=== PATIENT | female | born 1990 | race Caucasian/White ===

== ENCOUNTER → 2018-10-04 15:00 | Outpatient (CLI) | payer OTHER, SELFPAY ==
[2018-10-09 12:58] LABS: HPV Reflexed? NOT INDICATED
== END ==
PROVIDERS: Visit Provider Obstetrics & Gynecology
DX: Z12.4 Encounter for screening for malignant neoplasm of cervix (principal)
CPT/HCPCS: 87624; 88175; G0145

== ENCOUNTER → 2020-01-24 | Outpatient (CLI) | payer OTHER, SELFPAY ==
[2020-01-30 03:51] LABS: HPV Reflexed? NOT INDICATED
== END | disposition home or self-care (01) ==
PROVIDERS: Visit Provider Obstetrics & Gynecology
DX: Z12.4 Encounter for screening for malignant neoplasm of cervix (principal)
CPT/HCPCS: 88175; G0145

== ENCOUNTER → 2020-03-20 16:14 | Outpatient (CLI) | payer OTHER, SELFPAY ==
[2020-03-25 03:06] LABS: Chlamydia By Nucleic Acid AMP Negative (Negative)
[2020-03-25 09:43] LABS: Gonococcus By Nucleic Acid AMP Negative (Negative)
== END ==
PROVIDERS: Visit Provider Obstetrics & Gynecology
DX: Z11.3 Encounter for screening for infections with a predominantly sexual mode of transmission (principal)
CPT/HCPCS: 87491; 87591

== ENCOUNTER → 2020-04-17 16:11 | Outpatient (CLI) | payer OTHER, SELFPAY ==
[2020-04-17 17:26] LABS: hCG Titer Quant., Serum 9474 mIU/mL (1-3)
== END ==
PROVIDERS: Visit Provider Obstetrics & Gynecology
DX: O20.0 Threatened abortion (principal); Z3A.00 Weeks of gestation of pregnancy not specified
CPT/HCPCS: 36415; 84702

== ENCOUNTER → 2020-04-19 09:09 | Outpatient (CLI) | payer OTHER, SELFPAY ==
[2020-04-19 10:45] LABS: hCG Titer Quant., Serum 9264 mIU/mL (1-3)
== END ==
PROVIDERS: Referring Provider Obstetrics & Gynecology; Visit Provider Obstetrics & Gynecology
DX: O20.0 Threatened abortion (principal); Z3A.00 Weeks of gestation of pregnancy not specified
CPT/HCPCS: 36415; 84702

== ENCOUNTER → 2020-04-21 16:23 | Outpatient (CLI) | payer OTHER, SELFPAY ==
[2020-04-21 18:20] LABS: hCG Titer Quant., Serum 7529 mIU/mL (1-3)
== END ==
PROVIDERS: Visit Provider Obstetrics & Gynecology
DX: O20.0 Threatened abortion (principal); Z3A.00 Weeks of gestation of pregnancy not specified
CPT/HCPCS: 36415; 84702

== ENCOUNTER → 2020-04-28 | Outpatient (CLI) | payer OTHER, SELFPAY ==
[2020-04-28 17:44] LABS: hCG Titer Quant., Serum 388 mIU/mL (1-3)
== END | disposition home or self-care (01) ==
LOC: WOBLAB 16:17
PROVIDERS: Visit Provider Student in an Organized Health Care Education/Training Program
DX: O20.0 Threatened abortion (principal)
CPT/HCPCS: 36415; 84702

== ENCOUNTER → 2020-05-01 14:16 | Outpatient (CLI) | payer OTHER, SELFPAY ==
[2020-05-01 17:09] LABS: hCG Titer Quant., Serum 154 mIU/mL (1-3)
[2020-05-01 17:16] LABS: Prolactin 24.1 ng/mL; T4 Free Direct 0.62 ng/dL (0.76-1.46)
== END ==
PROVIDERS: Visit Provider Obstetrics & Gynecology
DX: O03.9 Complete or unspecified spontaneous abortion without complication (principal)
CPT/HCPCS: 36415; 84146; 84439; 84443; 84702

== ENCOUNTER → 2020-05-14 14:01 | Outpatient (CLI) | payer OTHER, SELFPAY ==
[2020-05-14 16:38] LABS: hCG Titer Quant., Serum 8 mIU/mL (1-3)
== END ==
PROVIDERS: Visit Provider Obstetrics & Gynecology
DX: O03.9 Complete or unspecified spontaneous abortion without complication (principal)
CPT/HCPCS: 36415; 84702

== ENCOUNTER → 2020-05-20 14:57 | Outpatient (CLI) | payer OTHER, SELFPAY ==
[2020-05-14 14:53] VITALS: BMI 36.0
--- NOTE | 2020-05-20 15:00 | US_ITS ---
STUDY: THYROID ULTRASOUND REASON FOR EXAM: Female, 30 years old. HYPOTHYROIDISM TECHNIQUE: Ultrasound evaluation of the thyroid was performed with real-time and static dean-scale imaging. COMPARISON: None. FINDINGS: RIGHT LOBE: The right lobe of the thyroid gland is slightly enlarged and measures 5.3 cm x 1.8 cm x 1.7 cm. There is a heterogeneous echotexture. There are no demonstrated solid, cystic or complex lesions. LEFT LOBE: The left lobe of the thyroid gland is slightly enlarged and measures 5 cm x 1.5 cm x 1.4 cm. There is a heterogeneous echotexture. There are no demonstrated solid, cystic or complex lesions. ISTHMUS: The isthmus measures 4 mm. The regional lymph nodes are normal. US/Thyroid IMPRESSION: Mildly enlarged right and left lobes of the thyroid gland with heterogeneous echotexture. Electronically Signed: Robert Frazier, at 15:44 EST , Service support ,
== END ==
PROVIDERS: PCP Internal Medicine; Referring Provider Internal Medicine; Visit Provider Internal Medicine
DX: E03.9 Hypothyroidism, unspecified (principal)
CPT/HCPCS: 76536

== ENCOUNTER → 2020-05-30 07:15 | Outpatient (CLI) | payer OTHER, SELFPAY ==
[2020-05-14 14:53] VITALS: BMI 36.0
[2020-05-30 07:54] LABS: T4 Free Direct 1.15 ng/dL (0.76-1.46)
[2020-06-02 14:08] LABS: Thyroid Peroxidase AB 428 IU/mL (0-34)
[2020-06-02 14:23] LABS: Thyroglobulin Antibody < 1.0 IU/mL (0.0-0.9)
== END ==
PROVIDERS: PCP Internal Medicine; Referring Provider Internal Medicine; Visit Provider Internal Medicine
DX: E03.9 Hypothyroidism, unspecified (principal)
CPT/HCPCS: 36415; 84439; 84443; 84481; 86376; 86800

== ENCOUNTER 2020-06-20 18:23 | Emergency (ER) | payer OTHER, SELFPAY ==
[2020-05-14 14:53] VITALS: BMI 36.0
[2020-06-20 18:23] VITALS: BP 147/95; PULSE 109; RESP 18; TEMP 36.3; O2SAT 100; BMI 33.9
--- NOTE | 2020-06-20 18:35 | RAD_ITS ---
STUDY: X-RAY - LEFT FOOT CLINICAL: Female, 30 years old. fall 2 days ago. generalized anterior and lateral foot pain. TECHNIQUE: 3 view(s) of the foot. COMPARISON: None. FINDINGS: Normal talus, calcaneus, and tarsal bones. Normal visualized subtalar, talonavicular, calcaneocuboid, tarsal and tarsometatarsal articulations. Normal metatarsi. Normal metatarsophalangeal joint of the great toe. Normal tibial and fibular sesamoid bones. Normal interphalangeal joint of the great toe. Normal phalanges of the great toe. Normal second through fifth metatarsophalangeal joints. Normal interphalangeal joints and phalanges of the lesser toes. The soft tissue structures are unremarkable. RAD/Foot min 3 Views IMPRESSION: Normal x-ray examination of the foot. Electronically Signed: Perry Maurer MD at 18:58 EST , Service support ,
--- NOTE | 2020-06-20 19:01 | ED.VIS.GEN ---
History of Present Illness Chief Complaint: Lower Extremity Injury Informant: Patient Narrative: Patient is a 30-year-old previously healthy female who presents to the emergency department for left foot pain. She states that she fell 2 days ago down 2 steps. She felt she twisted her ankle. She denies any ankle pain. The majority the pain is on the dorsal aspect of the foot. No previous injury or surgeries on that extremity. She has been taking Tylenol for her symptoms but not getting much relief. She has been able to ambulate but putting weight on it does cause the pain. She denies any other injury during the fall. Did not hit her head or lose consciousness. Past Medical History - Allergies and Home Meds Allergies/Adverse Reactions: Allergies No Known Allergies Allergy (Verified 06/20/20 18:25) Primary Care Physician: Carlene Lopez MD [Primary Care Provider] - 1 Week if not improving Prior records reviewed: Yes Past Medical History: None Smoking Status: Never smoker Review of Systems All systems negative except as indicated General: Denies: Chills, Fever ENT: Denies: Rhinorrhea, Sore throat Cardiovascular: Denies: Chest pain, Palpitations Respiratory: Denies: Dyspnea, Cough, Dyspnea on exertion Gastrointestinal: Denies: Abdominal pain, Nausea, Vomiting Genitourinary: Denies: Dysuria, Hematuria, Frequency Musculoskeletal: Reports: Extremity Pain. Denies: Neck pain, Back pain, Swelling Skin: Denies: Rash, Wounds Neurological: Denies: Headache, Weakness, Numbness Physical Exam Vital Signs/Narrative: Vital Signs Temp Pulse Resp BP Pulse Ox 06/20/20 18:23 97.4 F L 109 H 18 147/95 H 100 Inital Vital Signs reviewed: Yes General: Well nourished, Well developed, No Acute Distress Head: Normocephalic, Atraumatic Eyes: Perrl, EOMI ENT: Moist mucous membranes, No rhinorrhea Neck: Supple, Nontender Cardiovascular: Regular rate, Regular rhythm, No murmurs Respiratory: No distress, CTA bilaterally, Chest nontender Abdomen: Nondistended Back: Nontender, Normal Inspection Extremities: No edema, Tenderness - Along the dorsal aspect of the foot. No significant pain over base of fifth metatarsal. No pain over the calcaneus. No significant swelling. Has full range of motion. No significant edema. No obvious deformity. 2+ DP pulse. Brisk capillary refill. Sensation intact. Skin: Normal color, No rash Neurological: Alert, Oriented x3, Normal Strength, Normal Sensation Psychological: Normal affect, Normal Mood Diagnostic/Tx/Re-eval - Medical Decision Making Patient presents to the emergency department for left foot pain after a fall 2 days ago. She has been able to ambulate on it. Upon arrival to the emergency department she is in no acute distress. Will check x-ray of the foot to evaluate for fracture. X-ray of the foot did not reveal any acute fracture or dislocation. Will discharge home in stable condition. She is given a walking boot. Advised to use RICE as well as alternating Tylenol and ibuprofen. She understands and is agreeable this plan. She is to follow-up with her PCP. All questions were answered. ED Disposition - Plan for ED Patient: Disposition: Home or Assisted Living Diagnosis: Foot pain, left Instructions: ED Foot Sprain Referrals: Carlene Lopez MD [Primary Care Provider] - 1 Week if not improving
== END 2020-06-20 19:48 | disposition home or self-care (01) ==
LOC: ED 19:33
PROVIDERS: Emergency Provider Emergency Medicine; PCP Internal Medicine
DX: M79.672 Pain in left foot (principal); Z91.81 History of falling
CPT/HCPCS: 73630; 99283

== ENCOUNTER → 2020-06-30 07:48 | Outpatient (CLI) | payer OTHER, SELFPAY ==
[2020-06-20 18:23] VITALS: BMI 33.9
[2020-06-30 08:57] LABS: Free T3 2.5 pg/mL (2.18-3.98); T4 Free Direct 1.24 ng/dL (0.76-1.46); Thyroid Stim Hormone (TSH) 3.08 uIU/mL (0.358-3.74)
== END ==
PROVIDERS: PCP Internal Medicine; Referring Provider Internal Medicine; Visit Provider Internal Medicine
DX: E03.9 Hypothyroidism, unspecified (principal)
CPT/HCPCS: 36415; 84439; 84443; 84481

== ENCOUNTER 2020-09-03 07:35 | Outpatient (RCR) | payer OTHER, SELFPAY ==
[2020-08-28 08:57] LABS: Estradiol 106.3 pg/mL
[2020-09-01 08:36] LABS: Absolute Lymphocyte Count 1.71 X10^3/uL (0.83-4.51); Absolute Neutrophil Count 5.5 X10^3/uL (2.0-7.7); Basophil# 0.07 X10^3/uL; Basophil% 0.9 % (0-1); Eosinophils% 1.3 % (0-5); Hematocrit 44.9 % (37-47); Hemoglobin 15.1 g/dL (12.0-15.0); Lymphocyte # 1.71 X10^3/ul (4.0); Lymphocyte % 21.9 % (19-41); Mean Corp Hgb Conc 33.6 g/dL (32-36); Mean Corpuscular Hgb 30.5 pg (27.0-32.0); Mean Corpuscular Volume 90.7 fL (81-99); Mean Platelet Vol. 10.2 fl (6.2-12.0); Monocyte# 0.45 X10^3/uL; Monocyte% 5.8 % (0-10); NRBC Flagged by Analyzer 0 % (0-5); Neutrophil # 5.46 X10^3/uL (2.7-7.7); Neutrophil % 69.8 % (47-70); Platelet Count 292 K/mm3 (150-450); RBC Distribution Width CV 11.9 % (11.6-14.6); RBC Distribution Width SD 39.5 fl (35.1-43.9); Red Blood Count 4.95 M/mm3 (4.2-5.4); White Blood Count 7.8 K/mm3 (4.4-11.0)
[2020-09-01 09:08] LABS: Progesterone Level 7.23 ng/mL (See Comment); Vitamin B12 752 pg/mL (211-911); Vitamin D,25 Hydroxy 15.8 ng/mL
[2020-09-01 09:12] LABS: Hemoglobin A1c 5.1 % (3.8-5.6)
[2020-09-01 09:17] LABS: Estradiol 134.3 pg/mL; Follicle Stimulating Hormone 1.2 mIU/mL; Luteinizing Hormone 3.2 mIU/mL; Prolactin 28.6 ng/mL
[2020-09-03 08:44] LABS: Progesterone Level 3.06 ng/mL (See Comment)
[2020-09-03 08:47] LABS: Estradiol 57.8 pg/mL
[2020-09-05 22:06] LABS: Androstenedione 288 ng/dL (41-262); Sex Hormone-binding Globulin 21.4 nmol/L (24.6-122.0)
[2020-09-07 14:25] LABS: 17-Hydroxyprogesterone 159 ng/dL (.)
== END 2020-09-03 18:00 | disposition home or self-care (01) ==
LOC: LAB 07:35
PROVIDERS: PCP Internal Medicine
DX: N92.6 Irregular menstruation, unspecified (principal)
CPT/HCPCS: 36415; 82157; 82306; 82533; 82607; 82627; 82670; 83001; 83002; 83036; 83498; 84144; 84146; 84270; 84403; 85025; 82626

== ENCOUNTER → 2020-09-17 13:50 | Outpatient (CLI) | payer OTHER, SELFPAY ==
--- NOTE | 2020-09-17 13:59 | US_ITS ---
STUDY: ULTRASOUND OF THE FEMALE PELVIS - COMPLETE REASON FOR EXAM: Female, 30 years old. SCREENING FOR PCOS - PLEASE MEASURE DOMINANT FOLLICLES AND NOTE NUMBER OF CYSTS LMP: 09/05/2020 TECHNIQUE: Transabdominal and Transvaginal TECHNICAL QUALITY: Adequate. COMPARISON: None. FINDINGS: The uterus is anteverted and is in a midline position. The uterus measures 7.1 x 4.9 x 3.6 cm. Normal uterine cervix. The endometrium measures 2 mm in thickness, and is hyperechoic. There is no demonstrated endometrial mass. There is no demonstrated myometrial mass. I.U.D. - The patient does not have an I.U.D. The right ovary is visualized. The right ovary measures 4.1 x 2.4 x 1.6 cm. There is no right ovarian cyst or ovarian mass. There is no visualized right adnexal mass or complex lesion. There is normal arterial and normal venous vascularity. The left ovary is visualized. The left ovary measures 4.9 x 2.4 x 2.3 cm. There is no left ovarian cyst or ovarian mass. There is no visualized left adnexal mass or complex lesion. There is normal arterial and normal venous vascularity. There is no fluid in the cul-de-sac. The pre void volume of the bladder was ml. The post void volume of the bladder was ml. Polycystic ovary disease: No. US/Transvaginal Non- IMPRESSION: Normal female pelvis. Electronically Signed: Lee Carmen MD at 9:13 EST Tel , Service support ,
--- NOTE | 2020-09-17 13:59 | US_ITS ---
STUDY: ULTRASOUND OF THE FEMALE PELVIS - COMPLETE REASON FOR EXAM: Female, 30 years old. SCREENING FOR PCOS - PLEASE MEASURE DOMINANT FOLLICLES AND NOTE NUMBER OF CYSTS LMP: 09/05/2020 TECHNIQUE: Transabdominal and Transvaginal TECHNICAL QUALITY: Adequate. COMPARISON: None. FINDINGS: The uterus is anteverted and is in a midline position. The uterus measures 7.1 x 4.9 x 3.6 cm. Normal uterine cervix. The endometrium measures 2 mm in thickness, and is hyperechoic. There is no demonstrated endometrial mass. There is no demonstrated myometrial mass. I.U.D. - The patient does not have an I.U.D. The right ovary is visualized. The right ovary measures 4.1 x 2.4 x 1.6 cm. There is no right ovarian cyst or ovarian mass. There is no visualized right adnexal mass or complex lesion. There is normal arterial and normal venous vascularity. The left ovary is visualized. The left ovary measures 4.9 x 2.4 x 2.3 cm. There is no left ovarian cyst or ovarian mass. There is no visualized left adnexal mass or complex lesion. There is normal arterial and normal venous vascularity. There is no fluid in the cul-de-sac. The pre void volume of the bladder was ml. The post void volume of the bladder was ml. Polycystic ovary disease: No. US/Pelvic (Non ) IMPRESSION: Normal female pelvis. Electronically Signed: Lee Carmen MD at 9:13 EST Tel , Service support ,
== END ==
PROVIDERS: PCP Internal Medicine
DX: N92.6 Irregular menstruation, unspecified (principal)
CPT/HCPCS: 76830; 76856

== ENCOUNTER → 2020-09-18 06:51 | Outpatient (CLI) | payer OTHER, SELFPAY ==
[2020-09-18 07:44] LABS: Glucose 75GTT - Fasting 101 mg/dL (70-99)
[2020-09-18 07:55] LABS: Cholesterol 241 mg/dL (200); High Density Lipoprotein 70 mg/dL; Triglycerides 96 mg/dL; Very Low Density Lipoprotein 19 mg/dL (5-40)
[2020-09-18 08:01] LABS: Glucose 75GTT - 30 minutes 134 mg/dL (100-160)
[2020-09-18 08:33] LABS: Insulin 75GTT - Fasting 14.8 mU/L (2.6-37.6)
[2020-09-18 08:34] LABS: Insulin 75GTT - 30 MIN 72.6 mU/L (Not Estab.)
[2020-09-18 09:17] LABS: Glucose 75GTT - 60 minutes 127 mg/dL (100-160)
[2020-09-18 09:24] LABS: Insulin 75GTT - 60 min 86.3 mU/L (Not Estab)
[2020-09-18 10:45] LABS: Glucose 75GTT - 120 minutes 100 mg/dL (70-140)
[2020-09-18 10:53] LABS: Insulin 75GTT - 120 min 66.2 mU/L (Not Estab.)
== END ==
PROVIDERS: PCP Internal Medicine
DX: N92.6 Irregular menstruation, unspecified (principal)
CPT/HCPCS: 36415; 80061; 82951; 82952; 83525

== ENCOUNTER 2020-10-04 08:57 | Outpatient (RCR) | payer OTHER, SELFPAY ==
[2020-10-04 10:14] LABS: Estradiol 134.2 pg/mL; Free T3 2.6 pg/mL (2.18-3.98)
[2020-10-06 08:08] LABS: Progesterone Level 11.67 ng/mL (See Comment)
[2020-10-14 20:30] LABS: T3 Reverse 21.1 ng/dL (9.2-24.1); Thyroid Peroxidase AB 357 IU/mL (0-34)
== END 2020-10-04 18:00 | disposition home or self-care (01) ==
LOC: LAB 08:57
PROVIDERS: PCP Internal Medicine
DX: N92.6 Irregular menstruation, unspecified (principal)
CPT/HCPCS: 36415; 82670; 84144; 84439; 84443; 84481; 84482; 86376

== ENCOUNTER 2020-10-23 09:32 | Outpatient (RCR) | payer OTHER, SELFPAY ==
[2020-10-08 15:03] VITALS: BMI 35.6
== END 2020-12-16 23:59 ==
LOC: IMMUN 09:32
PROVIDERS: PCP Internal Medicine; Referring Provider Family Medicine; Visit Provider Family Medicine
DX: Z23 Encounter for immunization (principal)
CPT/HCPCS: 0001A; 0002A; 91300

== ENCOUNTER 2020-11-05 07:37 | Outpatient (RCR) | payer OTHER, SELFPAY ==
[2020-10-08 15:03] VITALS: BMI 35.6
[2020-11-05 08:50] LABS: Estradiol 88.1 pg/mL
[2020-11-05 08:51] LABS: Progesterone Level 14.08 ng/mL (See Comment)
== END 2020-11-05 18:00 | disposition home or self-care (01) ==
LOC: LAB 07:37
PROVIDERS: PCP Internal Medicine
DX: N92.6 Irregular menstruation, unspecified (principal)
CPT/HCPCS: 36415; 82670; 84144

== ENCOUNTER 2020-12-31 08:06 | Outpatient (RCR) | payer OTHER, SELFPAY ==
[2020-10-08 15:03] VITALS: BMI 35.6
[2020-12-11 09:07] LABS: Progesterone Level 12.57 ng/mL (See Comment)
[2020-12-31 09:10] LABS: Free T3 3.1 pg/mL (2.18-3.98); Glucose 91 mg/dL (74-106); T4 Free Direct 1.02 ng/dL (0.76-1.46); Thyroid Stim Hormone (TSH) 2.67 uIU/mL (0.358-3.74)
[2020-12-31 09:12] LABS: Insulin 11.4 mU/L (2.6-37.6); Vitamin D,25 Hydroxy 36.1 ng/mL
[2021-01-04 08:17] LABS: T3 Reverse 15.9 ng/dL (9.2-24.1); Thyroid Peroxidase AB 225 IU/mL (0-34)
== END 2020-12-31 18:00 | disposition home or self-care (01) ==
LOC: LAB 08:06
PROVIDERS: PCP Internal Medicine
DX: N92.6 Irregular menstruation, unspecified (principal)
CPT/HCPCS: 36415; 82306; 82670; 82947; 83525; 84144; 84439; 84443; 84481; 84482; 86376

== ENCOUNTER 2021-02-28 10:59 | Outpatient (RCR) | payer OTHER, SELFPAY ==
[2020-10-08 15:03] VITALS: BMI 35.6
[2021-02-17 10:06] LABS: Estradiol 84.9 pg/mL
[2021-02-17 15:25] LABS: Progesterone Level 34.67 ng/mL (See Comment)
[2021-02-28 12:48] LABS: Free T3 2.9 pg/mL (2.18-3.98); T4 Free Direct 1.17 ng/dL (0.76-1.46); Thyroid Stim Hormone (TSH) 1.81 uIU/mL (0.358-3.74)
[2021-03-04 09:39] LABS: T3 Reverse 24.1 ng/dL (9.2-24.1)
== END 2021-02-28 18:00 | disposition home or self-care (01) ==
LOC: LAB 10:59
PROVIDERS: PCP Internal Medicine
DX: N92.6 Irregular menstruation, unspecified (principal)
CPT/HCPCS: 36415; 82670; 84144; 84439; 84443; 84481; 84482

== ENCOUNTER 2021-04-16 07:08 | Outpatient (RCR) | payer OTHER, SELFPAY ==
[2021-03-10 19:31] VITALS: BMI 35.6
[2021-04-16 08:38] LABS: Progesterone Level 23.82 ng/mL (See Comment); Vitamin B12 532 pg/mL (211-911); Vitamin D,25 Hydroxy 53.9 ng/mL
[2021-04-16 09:01] LABS: Estradiol 99.3 pg/mL; Glucose 91 mg/dL (74-106); Prolactin 26.6 ng/mL
== END 2021-05-10 02:41 | disposition home or self-care (01) ==
LOC: LAB 07:08
PROVIDERS: PCP Internal Medicine
DX: N92.6 Irregular menstruation, unspecified (principal)
CPT/HCPCS: 36415; 82306; 82607; 82670; 82947; 83525; 84144; 84146

== ENCOUNTER → 2021-05-06 15:25 | Outpatient (CLI) | payer OTHER, SELFPAY ==
[2021-05-06 17:08] LABS: CRP < 2.90 mg/L (0.0-3.0); Rheumatoid Factor < 10.0 IU/mL (<15)
[2021-05-06 17:28] LABS: Erythrocyte Sedimentation Rate 7 mm/hr (0-30)
[2021-05-08 14:43] LABS: ANTINUCLEAR ANTIBODIES DIRECT Negative (Negative)
[2021-05-09 07:41] LABS: CCP IgG Antibodies 4 units (0-19)
== END ==
PROVIDERS: PCP Internal Medicine; Referring Provider Internal Medicine; Visit Provider Internal Medicine
DX: M25.50 Pain in unspecified joint (principal)
CPT/HCPCS: 36415; 85652; 86038; 86140; 86200; 86225; 86235; 86431

== ENCOUNTER 2021-06-08 07:59 | Outpatient (RCR) | payer OTHER, SELFPAY ==
[2021-06-08 09:39] LABS: Free T3 2.9 pg/mL (2.18-3.98); T4 Free Direct 1.06 ng/dL (0.76-1.46)
[2021-06-10 19:46] LABS: Anti-Thyroglobulin AB < 1.0 IU/mL (0.0-0.9); Thyroglobulin, Serum Qt. 9.6 ng/mL (1.5-38.5); Thyroid Peroxidase AB 122 IU/mL (0-34)
== END 2021-06-09 18:00 | disposition home or self-care (01) ==
LOC: LAB 07:59
PROVIDERS: PCP Internal Medicine
DX: E03.9 Hypothyroidism, unspecified (principal)
CPT/HCPCS: 36415; 84432; 84439; 84443; 84481; 86376; 86800

== ENCOUNTER 2021-07-21 07:22 | Outpatient (RCR) | payer OTHER, SELFPAY ==
[2021-07-21 08:44] LABS: Free T3 2.7 pg/mL (2.18-3.98); T4 Free Direct 1.03 ng/dL (0.76-1.46); Thyroid Stim Hormone (TSH) 2.72 uIU/mL (0.358-3.74)
[2021-07-22 15:46] LABS: Thyroglobulin Antibody < 1.0 IU/mL (0.0-0.9); Thyroid Peroxidase AB 110 IU/mL (0-34)
== END 2021-08-10 18:00 | disposition home or self-care (01) ==
LOC: LAB 07:22
PROVIDERS: PCP Internal Medicine
DX: E03.9 Hypothyroidism, unspecified (principal); N92.6 Irregular menstruation, unspecified
CPT/HCPCS: 36415; 84439; 84443; 84481; 86376; 86800

== ENCOUNTER 2021-07-27 12:00 | Outpatient (CLI) | payer OTHER, SELFPAY | END 2021-07-27 23:59 | disposition short-term general hospital (02) | LOC: LABSPEC 12:01 | PROVIDERS: PCP Internal Medicine; Visit Provider Physician Assistant Surgical | DX: Z20.822 Contact with and (suspected) exposure to COVID-19 (principal) | CPT/HCPCS: 87635; U0003; U0005 ==

== ENCOUNTER 2021-09-05 09:04 | Outpatient (RCR) | payer OTHER, SELFPAY ==
[2021-08-11 08:14] LABS: Progesterone Level 16.89 ng/mL (See Comment)
[2021-08-11 08:23] LABS: Estradiol 55.8 pg/mL
[2021-09-05 10:01] LABS: T4 Free Direct 1.06 ng/dL (0.76-1.46); Thyroid Stim Hormone (TSH) 1.48 uIU/mL (0.358-3.74)
[2021-09-08 00:06] LABS: Thyroid Peroxidase AB 97 IU/mL (0-34)
[2021-09-09 13:48] LABS: Thyroglobulin Antibody < 1.0 IU/mL (0.0-0.9)
== END 2021-09-05 18:00 | disposition home or self-care (01) ==
LOC: LAB 09:04
PROVIDERS: PCP Internal Medicine
DX: E03.9 Hypothyroidism, unspecified (principal); N92.6 Irregular menstruation, unspecified
CPT/HCPCS: 36415; 82670; 84144; 84439; 84443; 84481; 86376; 86800

== ENCOUNTER 2021-09-11 07:20 | Outpatient (RCR) | payer OTHER, SELFPAY ==
[2021-09-11 08:40] LABS: Estradiol 96.3 pg/mL
[2021-09-11 09:23] LABS: Progesterone Level 34.67 ng/mL (See Comment)
== END 2021-10-08 18:00 | disposition home or self-care (01) ==
LOC: LAB 07:20
PROVIDERS: PCP Internal Medicine
DX: E03.9 Hypothyroidism, unspecified (principal); N92.6 Irregular menstruation, unspecified
CPT/HCPCS: 36415; 82670; 84144

== ENCOUNTER 2021-12-26 08:42 | Outpatient (RCR) | payer OTHER, SELFPAY ==
[2021-12-26 10:05] LABS: Estradiol 110.7 pg/mL
[2021-12-28 08:26] LABS: Insulin 12.8 mU/L (2.6-37.6); Progesterone Level 25.81 ng/mL (See Comment)
== END 2021-12-26 23:59 | disposition home or self-care (01) ==
LOC: LAB 08:42
PROVIDERS: PCP Internal Medicine
DX: E03.9 Hypothyroidism, unspecified (principal); N92.6 Irregular menstruation, unspecified
CPT/HCPCS: 36415; 82670; 83525; 84144

== ENCOUNTER 2022-01-06 16:56 | Emergency (ER) | payer OTHER, SELFPAY ==
[2022-01-06 16:57] VITALS: BP 140/95; PULSE 82; RESP 15; TEMP 36.2; O2SAT 97; BMI 36.0
--- NOTE | 2022-01-06 17:29 | ED.VIS.FEGU ---
HPI HPI - Female History of Present Illness Chief Complaint: Abd Pain Narrative Narrative: This is a 31-year-old female with a history of PCOS presenting with right flank pain. She stated started on the right flank and radiated to the right inguinal region. She states this was sharp in nature. She vomited 2 times after this. Patient states she does not have dysuria or hematuria but noted she was having a sensation of incomplete bladder emptying earlier. She states this does not feel like previous ovarian cyst. She is currently pain-free. Denies history of kidney stones. No fevers, chills. No diarrhea or constipation. 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 Insulin resistance PCOS (polycystic ovarian syndrome) Home Medications NALTREXONE PO 10/08/20 [History Last Taken Unknown] inositol 2,000 mg-D chiro inositol 50 mg oral powder packet each PO DAILY 10/08/20 [History Last Taken Unknown] lactobacillus combination no.9 4 billion cell capsule (Adult 50 Plus Probiotic) PO 10/08/20 [History Last Taken Unknown] magnesium glycinate 100 mg tablet 1,000 mg PO DAILY 10/08/20 [History Last Taken Unknown] becka-inositol topical DAILY 10/08/20 [History Last Taken Unknown] prenat.vits,ez,vux-crjr-ysyhx 1 tablet PO DAILY 10/08/20 [History Last Taken Unknown] progesterone micronized 100 mg vaginal insert 1 insert vaginal ONCE 10/08/20 [History Last Taken Unknown] cholecalciferol (vitamin D3) 125 mcg (5,000 unit) capsule 250 mcg PO DAILY 05/06/21 [History Last Taken Unknown] levothyroxine (bulk) 1 mg/gram powder (PCCA T4 Sodium Dilution) mg miscellaneous DAILY 05/06/21 [History Last Taken Unknown] gsdmbkre-kkmleq-iqd-ock-aew-udot-horse 100 mg-100 mg-100 mg-125 mg tab (Tumersaid) tab PO 05/06/21 [History Last Taken Unknown] ascorbic acid (vitamin C) 1,000 mg tablet 1 g PO DAILY 06/29/21 [History Last Taken Unknown] choline 500 mg tablet mg PO 06/29/21 [History Last Taken Unknown] sanjuanita (Zingiber officinalis) 250 mg capsule 250 mg PO DAILY 06/29/21 [History Last Taken Unknown] omega-3 fatty acids 1,000 mg capsule 1,000 mg PO DAILY 06/29/21 [History Last Taken Unknown] azithromycin 250 mg tablet See Rx Instructions PO .COMPLEX #6 tabs 07/31/21 [Rx Last Taken Unknown] benzonatate 100 mg capsule 200 mg PO TID PRN cough #30 caps 07/31/21 [Rx Last Taken Unknown] hydrocodone-acetaminophen 5-325mg 5mg-325mg 1 tab PO Q6H PRN pain 3 days #10 tabs 01/06/22 [Rx Last Taken Unknown] ondansetron 4 mg disintegrating tablet 4 mg PO Q8H PRN nausea and vomiting #14 tabs 01/06/22 [Rx Last Taken Unknown] Allergy/AdvReac Type Severity Reaction Status Date / Time No Known Allergies Allergy Verified 07/31/21 12:51 Family History Aunt Breast cancer Grandfather Cancer Diabetes Grandmother Cancer Diabetes Myocardial infarction CVA (cerebral vascular accident) Father Hypertension Mother Hypertension Thyroid disorder Brother Seizures Thyroid disorder Surgical History left knee Social History Smoking Status: Never smoker alcohol intake: never substance use type: does not use ROS ROS ED Constitutional Constitutional ED: Denies chills or fever(s) Eyes Eyes: Denies change in vision ENT ENT ED: Denies rhinorrhea or sore throat Cardiovascular Cardiovascular: Denies chest pain or palpitations Respiratory/Chest Respiratory/Chest: Denies cough or dyspnea Gastrointestinal Gastrointestinal: Reports abdominal pain, nausea and vomiting Genitourinary Genitourinary ED: Denies dysuria or hematuria Integumentary Denies abscess or Abrasions Neurologic Neurologic: Denies headache(s) Psychiatric Psychiatric: Denies anxiety or depression EXAM Physical Exam Const Vital Signs: 01/06/22 16:57 01/06/22 19:13 01/06/22 21:14 Temperature 97.1 F L Temperature Source Temporal Pulse Rate 82 78 Respiratory Rate 15 16 17 Blood Pressure 140/95 H 130/80 H Blood Pressure Mean 110 Pulse Ox 97 98 Oxygen Delivery Method Room Air 01/06/22 21:14 Temperature Temperature Source Pulse Rate Respiratory Rate 16 Blood Pressure Blood Pressure Mean Pulse Ox Oxygen Delivery Method Positive well nourished General Appearance ED: NAD; Negative for pallor HEENT Reports moist mucous membranes Eyes PERRL Resp normal respiratory effort and clear to auscultation bilaterally Cardio regular rate and regular rhythm GI normal to inspection, nondistended, normoactive bowel sounds Back/Spine no CVA tenderness Extremity normal to inspection and full ROM Neuro oriented x3 and CN's II-XII intact bilaterally Sensorium / Orientation: alert Psych mental status grossly normal Skin no rashes or lesions noted General Skin Exam: Negative for jaundice or pallor MDM MDM MDM Narrative Medical decision making narrative: 31-year-old female presenting with right flank pain. It has resolved on arrival. She states does not feel like her previous ovarian cysts. It was sharp and colicky in nature. No history of kidney stones. She was given Toradol and Zofran and she feels improved. Blood work is obtained and her CBC is essentially normal. Renal function electrolytes are normal with exception of a potassium of 3.2. Urinalysis does show some blood however the patient is on her menstrual period. I did obtain a CT of the abdomen pelvis without contrast which shows a nonobstructing right renal calculi and another small pelvic calcification which the radiologist cannot determine is within the bladder or in the uterus. Given the patient's symptoms are treated like a kidney stone especially since she has a nonobstructing stone. She is given [place] and Zofran for home. I will give her urology follow-up. She does not need antibiotics. Patient stable for discharge at this time. Impression: 1. Bladder calculi 2. Hematuria 3. Right flank pain Lab Data Attestation: I reviewed the patient's lab results. Labs: Laboratory Results - last 24 hr 01/06/22 01/06/22 01/06/22 17:15 17:15 19:00 WBC 10.1 RBC 4.63 Hgb 14.1 Hct 41.8 MCV 90.3 MCH 30.5 MCHC 33.7 RDW Std Deviation 39.0 RDW Coeff of Stephie 11.9 Plt Count 328 MPV 10.4 Immature Gran % (Auto) 0.300 Neut % (Auto) 58.6 Lymph % (Auto) 30.9 Bureau % (Auto) 7.8 Eos % (Auto) 1.4 Baso % (Auto) 1.0 Absolute Neuts (auto) 5.9 Absolute Lymphs (auto) 3.13 Nucleated RBC % 0 Sodium 139 Potassium 3.2 L Chloride 105 Carbon Dioxide 27.0 Anion Gap 7 BUN 11 Creatinine 0.89 Estim Creat Clear Calc 86.53 Est GFR (MDRD) Af Amer 95 Est GFR (MDRD) Non-Af 79 BUN/Creatinine Ratio 12.3 Glucose 114 H Calcium 9.1 Urine Color Yellow Urine Clarity Clear Urine pH 6.5 Ur Specific Almo 1.015 Urine Protein 15 H Urine Glucose (UA) Normal Urine Ketones 5 H Urine Occult Blood 250 H Urine Nitrite Negative Urine Bilirubin Negative Urine Urobilinogen Normal Ur Leukocyte Esterase 25 H Urine RBC 10-25 SEEN Urine WBC 0-5 SEEN Ur Squamous Epith Cells 0-5 SEEN Urine Bacteria 1+ Urine Mucus 1+ Radiography Diagnostic Testing: Clinical Impression(s) from Imaging Studies Abdomen/Pelvis CT 01/06/22 17:52 IMPRESSION: 1. Nonobstructing right renal calculi. There is no other evidence of renal or ureteral abnormality. 2. Small pelvic calcification. It is uncertain whether this represents a calcification within the urinary bladder or in the adjacent uterus. 3. Otherwise normal CT of the abdomen and pelvis Electronically Signed: Babar Holbrook DO at 19:25 EDT Reading Location ID and State: [address] [place] [address] Tel [phone], Service support , Discharge Plan Triage Chief Complaint: Abd Pain ED Provider: Oumar Gerber Dx/Rx/DC Orders Instructions: ED Kidney Stone w/ Colic Prescriptions: New hydrocodone-acetaminophen 5-325 mg tablet 1 tab PO Q6H PRN (Reason: pain) 3 Days Qty: 10 0RF ondansetron 4 mg tablet,disintegrating 4 mg PO Q8H PRN (Reason: nausea and vomiting) Qty: 14 0RF No Action magnesium glycinate 100 mg tablet 1,000 mg PO DAILY NALTREXONE PO progesterone micronized 100 mg insert 1 insert VAGINAL ONCE Label Comments: take 3 days after ovulation through the 12 day becka-inositol TOPICAL DAILY inositol-D chiro inositol 2,000-50 mg powder in packet PO DAILY Adult 50 Plus Probiotic 4 billion cell capsule PO prenat.vits,ez,wlw-iveu-pqpga Tablet 1 tablet PO DAILY cholecalciferol (vitamin D3) 125 mcg (5,000 unit) capsule 250 mcg PO DAILY Tumersaid [phone] mg tablet PO levothyroxine (bulk) [PCCA T4 Sodium Dilution] 1 mg/gram powder miscellaneous DAILY Rx Instructions: T4 and T5 compounded thyroid medication. sanjuanita (Zingiber officinalis) 250 mg capsule 250 mg PO DAILY omega-3 fatty acids 1,000 mg capsule 1,000 mg PO DAILY ascorbic acid (vitamin C) 1,000 mg tablet 1 g PO DAILY choline 500 mg tablet PO azithromycin 250 mg tablet See Rx Instructions PO .COMPLEX Qty: 6 0RF Rx Instructions: take 500 mg today (day 1), then 250 mg for 4 days (days 2-5) PO benzonatate 100 mg capsule 200 mg PO TID PRN (Reason: cough) Qty: 30 0RF Primary Care Provider: Carlene Lopez Referrals: Yamilka John MD [STAFF PHYSICIAN] - As soon as possible Carlene Lopez MD [Primary Care Provider] - Disposition Disposition: Home, Self Care Discharge Date/Time: 01/06/22 21:15
[2022-01-06] MEDS: Ketorolac 15 MG/ML Vial IV (17:37)
[2022-01-06] MEDS: Ondansetron 4 MG/2 ML Vial IV (17:37)
[2022-01-06 17:41] LABS: Absolute Lymphocyte Count 3.13 X10^3/uL (0.83-4.51); Absolute Neutrophil Count 5.9 X10^3/uL (2.0-7.7); Eosinophil# 0.14 X10^3/uL; Eosinophils% 1.4 % (0-5); Hematocrit 41.8 % (37-47); Hemoglobin 14.1 g/dL (12.0-15.0); Lymphocyte # 3.13 X10^3/ul (0.83-4.51); Lymphocyte % 30.9 % (19-41); Mean Corp Hgb Conc 33.7 g/dL (32-36); Mean Corpuscular Hgb 30.5 pg (27.0-32.0); Mean Corpuscular Volume 90.3 fL (81-99); Mean Platelet Vol. 10.4 fl (6.2-12.0); Monocyte# 0.79 X10^3/uL; Monocyte% 7.8 % (0-10); NRBC Flagged by Analyzer 0 % (0-5); Neutrophil # 5.94 X10^3/uL (2.7-7.7); Neutrophil % 58.6 % (47-70); Platelet Count 328 K/mm3 (150-450); RBC Distribution Width CV 11.9 % (11.6-14.6); Red Blood Count 4.63 M/mm3 (4.2-5.4); White Blood Count 10.1 K/mm3 (4.4-11.0)
--- NOTE | 2022-01-06 17:52 | CT_ITS ---
STUDY: CT ABDOMEN AND PELVIS WITHOUT CONTRAST REASON FOR EXAM: Female, 31 years old. Kidney stone. RADIATION DOSAGE (If Supplied By Facility): CTDIvol = ( 11.88 ) mGy, DLP = ( 647.02 ) mGycm TECHNIQUE: Transaxial images were obtained from the dome of the diaphragm to the symphysis pubis without oral contrast, and without intravenous contrast. Sagittal and coronal images were reconstructed. Individualized dose optimization techniques were used for this CT. COMPARISON: None. FINDINGS: The visualized lung bases are unremarkable. The visualized portions of the heart are within normal limits. Normal liver. Normal gallbladder and extrahepatic biliary system. Normal spleen. Normal pancreas. Normal bilateral adrenal glands. There is calcification in the right mid kidney. The kidney is otherwise unremarkable. No hydronephrosis. Normal right ureter. Normal left kidney. Normal left ureter. Normal visualized stomach. Normal small intestine. Normal colon. The appendix is visualized and appears normal. Normal abdominal aorta. Normal inferior vena cava. Normal retroperitoneum. Normal urinary bladder. Normal uterus and normal adnexa. There is a small calcification best seen on image 159 of series 2 which appears to lie either in the extreme posterior aspect of the urinary bladder along the anterior aspect of the uterus. Cannot be ascertained with certainty. No pelvic lymphadenopathy. No free air or free fluid is seen within the cavity Normal abdominal wall. Normal osseous structures. CT/Abdomen/Pelvis without Cont IMPRESSION: 1. Nonobstructing right renal calculi. There is no other evidence of renal or ureteral abnormality. 2. Small pelvic calcification. It is uncertain whether this represents a calcification within the urinary bladder or in the adjacent uterus. 3. Otherwise normal CT of the abdomen and pelvis Electronically Signed: Babar Holbrook DO at 19:25 EDT ,
[2022-01-06 18:09] LABS: Anion Gap 7 (5-15); BUN 11 mg/dL (7-18); BUN/Creat Ratio 12.3 RATIO (10-20); Calcium,Total 9.1 mg/dL (8.5-10.1); Chloride 105 mmol/L (98-107); Creatinine, Serum 0.89 mg/dL (0.55-1.02); EST Glomerular Filtration Rate 79 mL/min (>60); Est Glom Filt Rate - Afr Amer 95 mL/min (>60); Estimated Creatinine Clearance 86.53 ml/min; Glucose 114 mg/dL (74-106); Potassium 3.2 mmol/L (3.5-5.1); Sodium Level 139 mmol/L (136-145)
[2022-01-06 19:13] VITALS: RESP 16
[2022-01-06 19:17] LABS: Color, Urine Yellow (Yellow); Glucose, Dipstick Normal (Normal); Ketone-Dipstick 5 mg/dl (Negative); Leukocyte Esterase-Dipstick 25 /ul (Negative); Nitrite-Dipstick Negative (Negative); Occult Blood-Urine 250 /ul (Negative); Protein-Dipstick 15 mg/dl (Negative); Specific Gravity, Urine 1.015 (1.002-1.030); Urine Bilirubin Dipstick Negative (Negative); Urine Clarity Clear (Clear); Urine Urobilinogen Normal (Normal); Urine pH 6.5 (5.0 - 8.0)
[2022-01-06 19:24] LABS: Red Blood Cells-Urine 10-25 SEEN /hpf (0-5); White Blood Cells 0-5 SEEN /hpf (0-5)
[2022-01-06 19:25] LABS: Bacteria 1+ /hpf (None Seen); Squamous Epithelial Cells - UA 0-5 SEEN /hpf (5-10)
[2022-01-06 19:26] LABS: Mucous, Urine 1+ /hpf (<or=2+)
[2022-01-06 21:14] VITALS: BP 130/80; PULSE 78; RESP 16; RESP 17; O2SAT 98
== END 2022-01-06 21:15 | disposition home or self-care (01) ==
PROVIDERS: Emergency Provider Student in an Organized Health Care Education/Training Program; PCP Internal Medicine; Visit Provider Student in an Organized Health Care Education/Training Program
DX: N20.0 Calculus of kidney (principal); R31.9 Hematuria, unspecified; R10.9 Unspecified abdominal pain; E03.9 Hypothyroidism, unspecified; E28.2 Polycystic ovarian syndrome
CPT/HCPCS: 74176; 80048; 81001; 85025; 96374; 96375; 99283; A4216; J2405

== ENCOUNTER → 2022-02-03 | Outpatient (CLI) | payer OTHER, SELFPAY ==
[2022-02-04 16:44] LABS: Giardia Lamblia, Stool EIA Negative (Negative)
== END | disposition home or self-care (01) ==
LOC: LABSPEC 09:20
PROVIDERS: PCP Internal Medicine; Referring Provider Internal Medicine; Visit Provider Internal Medicine
DX: K58.9 Irritable bowel syndrome, unspecified (principal)
CPT/HCPCS: 83630; 87329; 87493; 87506

== ENCOUNTER 2022-03-12 07:32 | Day surgery (SDC) | payer OTHER, SELFPAY ==
--- NOTE | 2022-03-12 | COLBX_PTH ---
PATIENT: NIKI VICENTE LOC: [facility] U#:[id number] AGE/SX: 32/F ROOM: RE03/12/[address]: Dr. Todd Reyes MD : 1990 BED: DIS: 03/12/2022 SPEC #: [id number] RECD: 03/12/22 12:04 STATUS: SURENDRA LUNA #: [id number] CONG: 03/12/22 00:[address]: Todd Reyes DEPT: SURGICAL PATHOLOGY RECD BY: Demetrio Juarez ENTERED: 03/12/22 12:05 SP TYPE: COLON BX OTHR DR: Dr. Carlene Lopez MD Tissues: A - Ileum, NOS B - COLON BIOPSY Procedures: Trichrome (control) Special Stain Group II Surgery Specimen Level IV HEADER OPERATION: Colonoscopy (MAC) with biopsies PRE-OP DIAGNOSIS: Chronic diarrhea TISSUE SUBMITTED: A ? Terminal ileum biopsy, B ? Random colon biopsies MICROSCOPIC DIAGNOSIS A. Terminal ileum, biopsy: A fragment of small intestinal mucosa, no pathologic diagnosis. B. Colon, random biopsy: Fragments of colonic mucosa with changes consistent with lymphocytic (microscopic) colitis. See comment. OUMAR:madison 03/16/2022 COMMENT B. Trichrome stain with matched control was used in the evaluation of the specimen and does not show any significant thickening of subepithelial collagen band. Correlation with clinical, endoscopic findings and appropriate follow up are necessary. MICROSCOPIC DESCRIPTION Slides are reviewed. GROSS DESCRIPTION A - Received in fixative is one container labeled with the patient's name and designated terminal ileum. The specimen consists of one irregular fragment of light lennon soft tissue that measures 0.4 x 0.3 x 0.1 cm. The specimen is totally submitted in one cassette. B - Received in fixative is one container labeled with the patient's name and designated random colon biopsy. The specimen consists of multiple irregular fragments of light lennon soft tissue that in aggregate measure 2 x 0.6 x 0.1 cm. The specimen is totally submitted in one cassette. / OUMAR:madison 03/12/2022 TC:3 CPT: 26621 x2, 05199
[2022-03-12] MEDS: Lactated Ringers 1,000 ML 15 ML IV (07:40)
[2022-03-12 08:02] VITALS: BP 124/84; PULSE 125; RESP 16; TEMP 36.9; O2SAT 99; BMI 35.9
[2022-03-12 08:03] LABS: Internal QC Validated? YES +Cl - CLEAR BKGD; Pregnancy, Urine Negative Negative
--- NOTE | 2022-03-12 08:07 | HP.PCM_ITS ---
History and Physical Date of Admission: 03/12/22 Visit Reasons:?C-Scope/Diarrhea Chief Complaint: diarrhea Desizing Machine Back Tender Required: No Is patient in pain?: No Allergies grape seed Allergy (Mild, Uncoded 03/02/22 14:38) Hives Medications inositol 2,000 mg-D chiro inositol 50 mg oral powder packet each PO DAILY 10/08/20 [History Confirmed 03/02/22] lactobacillus combination no.9 4 billion cell capsule (Adult 50 Plus Probiotic) PO 10/08/20 [History Confirmed 03/02/22] magnesium glycinate 100 mg tablet 1,000 mg PO DAILY 10/08/20 [History Confirmed 03/02/22] becka-inositol topical DAILY 10/08/20 [History Confirmed 03/02/22] prenat.vits,ez,hte-rmmy-tbhgc 1 tablet PO DAILY 10/08/20 [History Confirmed 03/02/22] progesterone micronized 100 mg vaginal insert 1 insert vaginal ONCE 10/08/20 [History Confirmed 03/02/22] cholecalciferol (vitamin D3) 125 mcg (5,000 unit) capsule 250 mcg PO DAILY 05/06/21 [History Confirmed 03/02/22] levothyroxine (bulk) 1 mg/gram powder (PCCA T4 Sodium Dilution) mg miscellaneous DAILY 05/06/21 [History Confirmed 03/02/22] gvdgrlpx-klelmu-vnb-xzg-ion-szgb-horse 100 mg-100 mg-100 mg-125 mg tab (Tumersaid) tab PO 05/06/21 [History Confirmed 03/02/22] NALTREXONE PO 02/01/22 [History Confirmed 03/02/22] Is last menstrual period known: No Post menopausal: No Patient : No PFSH Medical History?(Updated 03/02/22 @ 14:37 by Laurence Griffin) 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 Aunt Breast cancerGrandfather Cancer DiabetesGrandmother Cancer Diabetes Myocardial infarction CVA (cerebral vascular accident)Father HypertensionMother Hypertension Thyroid disorderBrother Seizures Thyroid disorder Social History? Smoking Status:? Never smoker alcohol intake:? never substance use type:? does not use Female Reproductive History Menstrual Ab spontaneous: 1 HPI HPI HPI: NIKI VICENTE, is a 32 F who presents to the office today for surgical consultation regarding chronic diarrhea.? She was referred by Dr. Carlene Lopez written copy of my surgical consult recommendations will return to him.? The patient states that for 3 months she has had diarrhea.? She states she was on a course of doxycycline and within 4 to 5 days of starting it she developed this diarrhea which is not ceased.? She had stool analysis obtained by Dr. Lopez and this was unremarkable.? On 1 occasion she had some mucus but generally this is not the case.? She denies any current abdominal pain.? No fever or chills or sweats.? She drinks city water.? Apparently no one else has been ill.? She has no family history of inflammatory bowel disease or polyps or colon cancer.? It is of note however that she has 2 brothers who have lactose intolerance.? The patient herself has not tried any dietary exclusions yet. ROS General General: Yes fatigue; No weight change, appetite, colon cancer, breast cancer or weakness HEENT HEENT: No difficulty swallowing, eye injury, eye surgery, swollen glands or hoarseness Endo Endocrine: Yes thyroid disease; No diabetes mellitus, thyroid cancer, Hair loss, heat intolerance or cold intolerance Breast Breast: No left breast lump, right breast lump, nipple discharge, breast pain, abnormal mammogram, abnormal US or breast enlargement Musc Musculoskeletal: No back problems, arthritis, rheumatoid arthritis, gout or joint pain Cardio Cardiovascular: No murmur, pacemaker, heart disease, atrial fibrillation, high blood pressure, heart attack, heart stent, palpitations, shortness of breat with exertion or chest pain Psych Psychiatric: Yes anxiety; No depression or hearing voices Resp Respiratory: No shortness of breath, No sleep apnea, No cough, No COPD, No asthma, No emphysema and No wheezing Gastro Gastrointestinal: No abdominal pain, No nausea or vomiting, Yes diarrhea, No constipation, No blood in stool, No acid reflux, No hemorrhoids, No ulcers, No gallbladder problem and No black,tarry stools Pankaj Hematologic: No blood thinners, No blood disorders, No bleeding, No anemia and No blood clots Neuro Neurologic: No weakness Exam Const General: cooperative, healthy appearing, comfortable and no acute distress Nutritional Appearance: obese HENMT Head: normal to inspection Eyes General: appearance normal, both eyes and all related structures Resp Effort & Inspection: normal respiratory effort Auscultation: clear to auscultation bilaterally Cardio Rate: regular rate Rhythm: regular rhythm GI Inspection: normal to inspection Palpation: soft and no hepatosplenomegaly Skin General: no rashes or lesions noted Neuro Cognition: normal cognition Extrem General: no calf tenderness Psych Appearance: grossly normal Assessment and Plan Assessment and Plan (1) Chronic diarrhea: ?Status:?Chronic ?Plan: Chronic diarrhea of undetermined etiology.? I propose for the patient a colonoscopy with possible biopsy or polypectomy as indicated.? Attempt to intubate the terminal ileum will be pursued.? I anticipate monitored anesthesia care.? We will try to expedite the patient's management.? She is aware of the technique, benefit, risk, alternatives.? She has had an opportunity to ask and have questions answered. In the interim she will consider avoiding dairy products to see if this makes an improvement as well. She has had an opportunity ask and have questions answered I very much appreciate the kind opportunity of assisting in the surgical care Copy: Dr. Carlene Reyes M.D., F.A.C.S I have re-examined the patient. There are no clinical changes since date of exam. Todd Reyes M.D., F.A.C.S.
[2022-03-12 09:09] VITALS: BP 118/72; BP 124/84; PULSE 99; RESP 18; TEMP 36.8; O2SAT 100
--- NOTE | 2022-03-12 09:12 | OP.COLON_ITS ---
Patient Name: Terri Lamb Procedure Date: 03/12/2022 8:44 AM Date of : 1990 Age: 32 Procedure: Colonoscopy Indications: Chronic diarrhea Providers: Todd Reyes MD Medicines: See the Anesthesia note for documentation of the administered medications Patient Profile: Last Colonoscopy: none. The patient's first colonoscopy is today. Complications: No immediate complications. Procedure: Pre-Anesthesia Assessment: - Prior to the procedure, a History and Physical was performed, and patient medications and allergies were reviewed. The patient's tolerance of previous anesthesia was also reviewed. The risks and benefits of the procedure and the sedation options and risks were discussed with the patient. All questions were answered, and informed consent was obtained. Prior Anticoagulants: The patient has taken no previous anticoagulant or antiplatelet agents. ASA Grade Assessment: II - A patient with mild systemic disease. After reviewing the risks and benefits, the patient was deemed in satisfactory condition to undergo the procedure. After I obtained informed consent, the scope was passed under direct vision. Throughout the procedure, the patient's blood pressure, pulse, and oxygen saturations were monitored continuously. The pediatric colonoscope was introduced through the anus and advanced to the terminal ileum. The colonoscopy was performed without difficulty. The patient tolerated the procedure well. The quality of the bowel preparation was good. The terminal ileum and the ileocecal valve were photographed. Scope In: 8:51:32 AM Scope Withdrawal Time 0 hours 8 minutes 34 seconds Scope Out: 9:05:01 AM Total Procedure Duration Time 0 hours 13 minutes 29 seconds Findings: The perianal and digital rectal examinations were normal. The colon (entire examined portion) appeared normal. The terminal ileum appeared normal. Biopsies were taken with a cold forceps for histology. Biopsies for histology were taken with a cold forceps from the entire colon for evaluation of microscopic colitis. Impression: - The entire examined colon is normal. - The examined portion of the ileum was normal. Biopsied. - Biopsies were taken with a cold forceps from the entire colon for evaluation of microscopic colitis. Recommendation: - Discharge patient to home. - Resume previous diet. - Continue present medications. - Repeat colonoscopy at age 51. - Telephone my office for pathology results in 1 week. Procedure Code(s): --- Professional --- 26249, Colonoscopy, flexible; with biopsy, single or multiple Diagnosis Code(s): --- Professional --- K52.9, Noninfective gastroenteritis and colitis, unspecified CPT copyright 2017 [employer]. All rights reserved. The codes documented in this report are preliminary and upon anesthesiologist assistant certified review may be revised to meet current compliance requirements. Todd Reyes MD 03/12/2022 9:11:42 AM This report has been signed electronically. Number of Addenda: 0 Note Initiated On: 03/12/2022 8:44 AM
--- NOTE | 2022-03-12 09:12 | OP.CCLET_ITS ---
03/12/2022 Carlene Lopez [facility] [address] [place] [address] Re : Colonoscopy procedure for Terri Lamb Dear Dr. Lopez This procedure was performed on Saturday, March 12, 2022. My impressions and recommendations are as follows: Impressions : - The entire examined colon is normal. - The examined portion of the ileum was normal. Biopsied. - Biopsies were taken with a cold forceps from the entire colon for evaluation of microscopic colitis. Recommendations : - Discharge patient to home. - Resume previous diet. - Continue present medications. - Repeat colonoscopy at age 51. - Telephone my office for pathology results in 1 week. My findings are described in the full procedure note, which is enclosed. If I can be of further assistance, please feel free to contact me at Doctor phone number(s): Work: . Sincerely, Todd Reyes MD 03/12/2022 9:11:42 AM This report has been signed electronically.
[2022-03-12 09:15] VITALS: BP 108/78; BP 124/84; PULSE 96; RESP 18; O2SAT 99
[2022-03-12 09:20] VITALS: BP 118/85; BP 124/84; PULSE 88; RESP 18; O2SAT 94
[2022-03-12 09:24] VITALS: BP 124/84; BP 127/80; PULSE 86; RESP 18; TEMP 37.2; O2SAT 96
[2022-03-12 09:39] VITALS: BP 124/84
== END 2022-03-12 09:55 | disposition home or self-care (01) ==
LOC: EN 07:33 → AC 07:34
PROVIDERS: Anesthesiology; PCP Internal Medicine; Referring Provider Internal Medicine; Visit Provider Surgery
PROC: 0DJD8ZZ Inspection of Lower Intestinal Tract, Via Natural or Artificial Opening Endoscopic (ICD-10-PCS; CPT 45378; principal; 2022-03-12 08:25)
DX: K52.9 Noninfective gastroenteritis and colitis, unspecified (principal)
CPT/HCPCS: 45380; 81025; 88305; 88313; J7120; J2405

== ENCOUNTER 2022-03-25 08:48 | Day surgery (SDC) | payer OTHER, SELFPAY ==
[2022-03-25 09:11] LABS: Internal QC Validated? YES +Cl - CLEAR BKGD; Pregnancy, Urine Negative Negative
[2022-03-25 09:15] VITALS: BP 131/84; PULSE 98; RESP 16; TEMP 36.7; O2SAT 100; BMI 36.6
[2022-03-25] MEDS: Lactated Ringers 1,000 ML 15 ML IV (09:26)
--- NOTE | 2022-03-25 10:54 | DCINST_ITS ---
Discharge Instructions Diet Discharge Diet: No restrictions Activity Discharge Activity: Return to Normal Activity Follow Up Care Please Follow Up With: Yamilka John MD When: 2 to 3 weeks with a KUB, call for appointment Test Results: Test results from this visit will be discussed in further detail at your follow- up appointment, if applicable. Discharge Plan Admission Attending Provider: Yamilka John Primary Care Provider: Carlene Lopez Discharge Orders/Prescriptions Prescriptions: New ondansetron HCl [ondansetron HCl] 8 mg tablet 8 mg PO Q8H PRN PRN (Reason: Nausea) 7 Days Qty: 20 0RF oxycodone-acetaminophen [oxycodone-acetaminophen] 5-325 mg tablet 2 tab PO Q8H PRN PRN (Reason: Pain) 7 Days Qty: 20 0RF cephalexin [cephalexin] 500 mg capsule 500 mg PO Q12 3 Days Qty: 6 0RF Continued magnesium glycinate 100 mg tablet 1,000 mg PO DAILY progesterone micronized 100 mg insert 1 insert VAGINAL ONCE Label Comments: take 3 days after ovulation through the 14TH day becka-inositol 1 dose TOPICAL DAILY inositol-D chiro inositol 2,000-50 mg powder in packet 1 each PO DAILY prenat.vits,ez,ogj-prkf-yagpc Tablet 1 tablet PO DAILY cholecalciferol (vitamin D3) 125 mcg (5,000 unit) capsule 250 mcg PO DAILY NALTREXONE 4.5 mg PO DAILY Rx Instructions: 4.5mg daily Tumersaid [phone] mg tablet 1 tab PO DAILY levothyroxine 137 mcg tablet 137 mcg PO DAILY Label Comments: TAKE 1 TABLET BY MOUTH EVERY DAY 1 HOUR PRIOR TO BREAKFAST. triamcinolone acetonide 0.5 % Cream 1 applic TOPICAL BID ketoconazole 2 % cream 1 applic TOPICAL BID Label Comments: APPLY BETWEEN THE BREASTS TWICE DAILY progesterone micronized 100 mg Capsule 200 mg PO QHS coenzyme Q10 [CoQ-10] 100 mg Capsule 100 mg PO DAILY budesonide 9 mg capsule, extended release 9 mg PO DAILY Qty: 60 0RF Referrals / Follow Up: Carlene Lpoez MD [Primary Care Provider] - Disposition Disposition (needs filled in before D/C Order can be placed): Home, Self Care
--- NOTE | 2022-03-25 10:57 | OP.PCM_ITS ---
Report of Operation Date of Procedure: 03/25/22 Pre-Operative Diagnosis: Right kidney stone Post-Operative Diagnosis: Same Surgery/Procedure Performed:: Cystoscopy, right retrograde pyelogram, right ureteroscopy, right ureteral stent insertion Surgeon: Yamilka John Type of Anesthesia: General Specimen's removed: None Description of Procedure: The patient is a 32-year-old female with a right renal stone identified on imaging. She now presents for surgical intervention under anesthesia. Informed consent was obtained. The patient was taken to the operating room and placed on the operating room table. Anesthesia monitored the head, neck, airway, IV access case. Once anesthesia was administered, the patient was visualized with the lithotripter and the stone was not able to be seen. The patient was then placed into dorsal lithotomy position and was prepped and draped in usual sterile fashion. A cystoscope was inserted through the urethra under direct vis ualization into the urinary bladder. There were no masses or areas of erythema, foreign body or other abnormality identified. The right ureteral orifice was then intubated with an 8 Armenian cone-tip catheter. Contrast was injected in retrograde fashion filling the calyces. The stone was not clearly identified still yet. The decision was made to perform ureteroscopy to directly visualize the stone. A 0.035 Glidewire was passed into the upper pole. A flexible ureteroscope was inserted over the Glidewire to the lower aspect of the ureter where a narrowing was identified. The ureteroscope would not progress further and the decision was made to place a ureteral stent and abort the shockwave lithotripsy. A 6 Armenian 26 cm JJ stent was placed over the wire with good positioning in the renal pelvis as well as the urinary bladder. The patient's bladder was then emptied and the case was terminated. She was awakened and taken to the recovery room in good condition. There were no complications during this procedure. Grafts/Implants Used: 6 x 26 JJ stent Complications None Admit VTE Documentation VTE Present on Admission: Yes VTE Mechan Device Prophylaxis: SCD's VTE Pharm Prophylaxis ordered?: No
[2022-03-25] MEDS: Cefazolin 2 GM in 0.9% Normal Saline 100 ML IV (11:09)
[2022-03-25 12:01] VITALS: BP 131/84; BP 137/93; PULSE 108; RESP 16; TEMP 36.9; O2SAT 100
[2022-03-25 12:15] VITALS: BP 131/84; BP 137/91; PULSE 96; RESP 16; O2SAT 100
[2022-03-25 12:25] VITALS: BP 131/84; BP 141/90; PULSE 85; RESP 18; TEMP 36.2; O2SAT 100
[2022-03-25] MEDS: Acetaminophen 325 MG Tablet 650 MG PO (12:43)
[2022-03-25] MEDS: oxyCODONE 5 MG Tablet 10 MG PO (12:43)
[2022-03-25 13:11] VITALS: BP 131/84
== END 2022-03-25 13:44 | disposition home or self-care (01) ==
LOC: SDC 08:49 → AC 08:49
PROVIDERS: PCP Internal Medicine; Referring Provider Urology; Visit Provider Urology
PROC: (CPT 50590; principal; 2022-03-25 10:00)
DX: N20.0 Calculus of kidney (principal); Z87.442 Personal history of urinary calculi; N39.3 Stress incontinence (female) (male); R39.14 Feeling of incomplete bladder emptying
CPT/HCPCS: 52332; 00910; 81025; J7120; C2617; J2405

== ENCOUNTER 2022-04-15 05:54 | Day surgery (SDC) | payer OTHER, SELFPAY ==
[2022-04-15] VITALS (8 sets, daily range): BP systolic 130–140; BP diastolic 82–98; PULSE 92–120; RESP 16–18; TEMP 36.5–37.1; O2SAT 18–97; BMI 35.9
[2022-04-15 06:30] LABS: Internal QC Validated? YES +Cl - CLEAR BKGD; Pregnancy, Urine Negative Negative
[2022-04-15] MEDS: Lactated Ringers 1,000 ML 15 ML IV (06:32)
[2022-04-15] MEDS: Cefazolin 2 GM in 0.9% Normal Saline 100 ML IV (07:30)
--- NOTE | 2022-04-15 07:35 | DCINST_ITS ---
Discharge Instructions Diet Discharge Diet: No restrictions Activity Discharge Activity: Return to Normal Activity Dressing / Incision Call your doctor if you observe: Fever of 101 or Higher, Inability to urinate and Inability to have a bowel movement Follow Up Care Please Follow Up With: Yamilka John MD When: Call office for appointment Test Results: Test results from this visit will be discussed in further detail at your follow- up appointment, if applicable. Discharge Plan Admission Attending Provider: Yamilka John Primary Care Provider: Carlene Lopez Discharge Orders/Prescriptions Prescriptions: New oxycodone-acetaminophen [oxycodone-acetaminophen] 5-325 mg tablet 2 tab PO Q8H PRN PRN (Reason: Pain) 7 Days Qty: 20 0RF cephalexin [cephalexin] 500 mg capsule 500 mg PO Q12 3 Days Qty: 6 0RF Continued magnesium glycinate 100 mg tablet 1,000 mg PO DAILY progesterone micronized 100 mg insert 1 insert VAGINAL ONCE Label Comments: take 3 days after ovulation through the 14TH day becka-inositol 1 dose TOPICAL DAILY inositol-D chiro inositol 2,000-50 mg powder in packet 1 each PO DAILY prenat.vits,ez,wud-rlkn-gkaci Tablet 1 tablet PO DAILY cholecalciferol (vitamin D3) 125 mcg (5,000 unit) capsule 250 mcg PO DAILY NALTREXONE 4.5 mg PO DAILY Rx Instructions: 4.5mg daily Tumersaid [phone] mg tablet 1 tab PO DAILY levothyroxine 137 mcg tablet 137 mcg PO DAILY Label Comments: TAKE 1 TABLET BY MOUTH EVERY DAY 1 HOUR PRIOR TO BREAKFAST. ondansetron HCl 8 mg tablet 8 mg PO Q8H PRN PRN (Reason: Nausea) 7 Days Qty: 20 0RF oxycodone-acetaminophen 5-325 mg tablet 2 tab PO Q8H PRN PRN (Reason: Pain) 7 Days Qty: 20 0RF triamcinolone acetonide 0.5 % Cream 1 applic TOPICAL BID ketoconazole 2 % cream 1 applic TOPICAL BID Label Comments: APPLY BETWEEN THE BREASTS TWICE DAILY progesterone micronized 100 mg Capsule 200 mg PO QHS coenzyme Q10 [CoQ-10] 100 mg Capsule 100 mg PO DAILY metformin 500 mg tablet 500 mg PO DAILY Label Comments: TAKE 1 TABLET BY MOUTH TWO TIMES A DAY FOR MEALS oxybutynin chloride 10 mg tablet extended release 24hr 10 mg PO PRN PRN (Reason: PAINFUL URINATION) Label Comments: TAKE 1 TABLET BY MOUTH EVERY DAY IN THE MORNING phenazopyridine 200 mg tablet 200 mg PO Q8 PRN (Reason: PAINFUL URINATION) Label Comments: TAKE 1 TABLET EVERY 8 HOURS NEEDED budesonide 9 mg capsule, extended release 9 mg PO DAILY Qty: 60 0RF Referrals / Follow Up: Carlene Lopez MD [Primary Care Provider] - Disposition Disposition (needs filled in before D/C Order can be placed): Home, Self Care
[2022-04-15] MEDS: Ketorolac 30 MG/ML Syringe IV (09:41)
--- NOTE | 2022-04-15 12:08 | PCM.OPRPT ---
Report of Operation Date of Procedure: 04/15/22 Pre-Operative Diagnosis: Right renal calculus Post-Operative Diagnosis: Same Surgery/Procedure Performed:: Cystoscopy, right ureteroscopy, retrograde pyelogram, right ureteral stent change Surgeon: Yamilka John Type of Anesthesia: General Specimen's removed: None Description of Procedure: The patient is a 32-year-old female with a right renal calculus who presents for ureteroscopy possible laser lithotripsy of her stone. Informed consent has been obtained. The patient was taken to the operating room and placed on the operating room table. Anesthesia monitored the head, neck, airway, IV access and vital signs throughout the case. Once anesthesia was appropriately administered, the patient was placed into dorsolithotomy position was prepped and draped in usual sterile fashion. The cystoscope was inserted through the urethra under direct visualization into the urinary bladder. The mucosa surrounding the stent was extremely edematous and erythematous and irritated. A 0.035 Glidewire was passed alongside the stent which was then grasped and pulled to the urethral meatus. I was unable to thread a second Glidewire through the stent so I remove the stent and used the cystoscope to place a second wire alongside the first. The flexible ureteroscope was then advanced over one of the Glidewire all the way to the renal pelvis. There was no stone identified in any of the calyces or the renal pelvis. Contrast was then injected to ensure all calyces were directly visualized. There was some debris present from the stent which was grasped and removed. The feeling is that the stone is intraparenchymal. At this time the entire length of the ureter was evaluated and found to be without evidence of obstruction or stone. The safety wire was then used to place a 6 Greenlandic 26 cm stent with good positioning in the renal pelvis as well as the urinary bladder. The string was left attached to the stent and was secured to her right inner thigh using Steri-Strips. The patient was then awakened and taken to the recovery room in good condition. There were no complications during this procedure. Grafts/Implants Used: 6 x 26 JJ stent Complications None Admit VTE Documentation VTE Present on Admission: Yes VTE Mechan Device Prophylaxis: SCD's VTE Pharm Prophylaxis ordered?: No
== END 2022-04-15 10:28 | disposition home or self-care (01) ==
LOC: SDC 05:56 → AC 05:56
PROVIDERS: Anesthesiology; PCP Internal Medicine; Referring Provider Urology; Visit Provider Urology
PROC: 0TJ98ZZ Inspection of Ureter, Via Natural or Artificial Opening Endoscopic (ICD-10-PCS; CPT 52352; principal; 2022-04-15 07:20)
DX: N20.0 Calculus of kidney (principal); N39.3 Stress incontinence (female) (male); R39.14 Feeling of incomplete bladder emptying; E28.2 Polycystic ovarian syndrome; E88.81 Metabolic syndrome and other insulin resistance
CPT/HCPCS: 52332; 52310; 76000; 81025; J7120; C2617; J2405

== ENCOUNTER 2022-04-24 09:04 | Outpatient (RCR) | payer OTHER, SELFPAY ==
[2022-04-24 10:31] LABS: Free T3 2.8 pg/mL (2.18-3.98); T4 Free Direct 1.55 ng/dL (0.76-1.46); Thyroid Stim Hormone (TSH) 0.42 uIU/mL (0.358-3.74)
[2022-04-27 16:14] LABS: Anti-Thyroglobulin AB < 1.0 IU/mL (0.0-0.9); Thyroglobulin, Serum Qt. 3.9 ng/mL (1.5-38.5); Thyroid Peroxidase AB 46 IU/mL (0-34)
== END 2022-05-10 18:00 | disposition home or self-care (01) ==
LOC: LAB 09:04
PROVIDERS: PCP Internal Medicine
DX: E03.9 Hypothyroidism, unspecified (principal)
CPT/HCPCS: 36415; 84432; 84439; 84443; 84481; 86376; 86800

== ENCOUNTER → 2022-05-31 | Outpatient (CLI) | payer OTHER, SELFPAY ==
[2022-05-31 18:09] LABS: Calcium,Total 9.4 mg/dL (8.5-10.1)
== END | disposition home or self-care (01) ==
LOC: MTLAB 15:52
PROVIDERS: PCP Internal Medicine; Referring Provider Urology; Visit Provider Urology
DX: N20.0 Calculus of kidney (principal)
CPT/HCPCS: 36415; 82310

== ENCOUNTER 2022-06-04 09:08 | Outpatient (RCR) | payer OTHER, SELFPAY ==
[2022-06-04 10:26] LABS: Free T3 2.5 pg/mL (2.18-3.98); T4 Free Direct 1.36 ng/dL (0.76-1.46)
[2022-06-06 14:44] LABS: Thyroid Peroxidase AB 34 IU/mL (0-34)
== END 2022-06-09 08:00 | disposition home or self-care (01) ==
LOC: LAB 09:08
PROVIDERS: PCP Internal Medicine
DX: N92.6 Irregular menstruation, unspecified
CPT/HCPCS: 36415; 84439; 84443; 84481; 86376

== ENCOUNTER 2022-06-28 07:54 | Outpatient (RCR) | payer OTHER, SELFPAY ==
[2022-06-28 08:45] LABS: Progesterone Level 28.72 ng/mL (See Comment)
[2022-06-28 08:51] LABS: Estradiol 77.4 pg/mL
== END 2022-06-28 18:00 | disposition home or self-care (01) ==
LOC: LAB 07:54
PROVIDERS: PCP Internal Medicine
DX: N92.6 Irregular menstruation, unspecified
CPT/HCPCS: 36415; 82670; 84144

== ENCOUNTER → 2022-07-01 | Outpatient (CLI) | payer OTHER, SELFPAY ==
[2022-07-01 09:00] LABS: Absolute Lymphocyte Count 2.59 X10^3/uL (0.83-4.51); Absolute Neutrophil Count 5.7 X10^3/uL (2.0-7.7); Basophil# 0.13 X10^3/uL; Basophil% 1.3 % (0-1); Eosinophil# 0.66 X10^3/uL; Eosinophils% 6.8 % (0-5); Hematocrit 43.3 % (37-47); Hemoglobin 14.7 g/dL (12.0-15.0); Lymphocyte # 2.59 X10^3/ul (0.83-4.51); Lymphocyte % 26.7 % (19-41); Mean Corp Hgb Conc 33.9 g/dL (32-36); Mean Corpuscular Hgb 30.9 pg (27.0-32.0); Mean Corpuscular Volume 91.2 fL (81-99); Mean Platelet Vol. 9.8 fl (6.2-12.0); Monocyte% 6.2 % (0-10); NRBC Flagged by Analyzer 0 % (0-5); Neutrophil # 5.67 X10^3/uL (2.7-7.7); Neutrophil % 58.6 % (47-70); Platelet Count 353 K/mm3 (150-450); RBC Distribution Width CV 11.9 % (11.6-14.6); RBC Distribution Width SD 39.8 fl (35.1-43.9); Red Blood Count 4.75 M/mm3 (4.2-5.4); White Blood Count 9.7 K/mm3 (4.4-11.0)
[2022-07-01 09:21] LABS: Vitamin D,25 Hydroxy 54.8 ng/mL
[2022-07-01 09:37] LABS: ALB/GLOB Ratio 1.1 RATIO (0.9-2.4); AST(SGOT) 12 U/L (15-37); Alanine Aminotransfer ALT/SGPT 34 U/L (13-56); Albumin, Serum 3.8 g/dL (3.2-5.0); Alkaline Phosphatase 76 U/L (45-117); Anion Gap 4 (5-15); BUN 12 mg/dL (7-18); BUN/Creat Ratio 14.8 RATIO (10-20); Calcium,Total 9.2 mg/dL (8.5-10.1); Chloride 106 mmol/L (98-107); Cholesterol 249 mg/dL (200); Creatinine, Serum 0.81 mg/dL (0.55-1.02); EST Glomerular Filtration Rate 87 mL/min (>60); Est Glom Filt Rate - Afr Amer 106 mL/min (>60); Free T3 2.8 pg/mL (2.18-3.98); Globulin 3.5 g/dL (2.2-4.2); Glucose 95 mg/dL (74-106); High Density Lipoprotein 51 mg/dL; Potassium 3.8 mmol/L (3.5-5.1); Protein, Total 7.3 g/dL (6.4-8.2); Sodium Level 138 mmol/L (136-145); T4 Free Direct 1.32 ng/dL (0.76-1.46); Thyroid Stim Hormone (TSH) 0.54 uIU/mL (0.358-3.74); Triglycerides 103 mg/dL; Very Low Density Lipoprotein 21 mg/dL (5-40)
== END | disposition home or self-care (01) ==
LOC: LAB 08:13
PROVIDERS: PCP Internal Medicine; Visit Provider Internal Medicine
DX: E88.81 Metabolic syndrome and other insulin resistance (principal); E66.9 Obesity, unspecified; E28.2 Polycystic ovarian syndrome; E55.9 Vitamin D deficiency, unspecified; Z13.220 Encounter for screening for lipoid disorders
CPT/HCPCS: 36415; 80053; 80061; 82306; 84439; 84443; 84481; 85025

== ENCOUNTER 2022-07-28 07:21 | Outpatient (RCR) | payer OTHER, SELFPAY ==
[2022-07-28 08:09] LABS: Estradiol 76.7 pg/mL
[2022-07-28 08:16] LABS: Progesterone Level 32.43 ng/mL (See Comment)
== END 2022-07-28 08:30 | disposition home or self-care (01) ==
LOC: LAB 07:21
PROVIDERS: PCP Internal Medicine
DX: E03.9 Hypothyroidism, unspecified (principal); N92.6 Irregular menstruation, unspecified
CPT/HCPCS: 36415; 82670; 84144

== ENCOUNTER → 2022-08-02 | Outpatient (CLI) | payer OTHER, SELFPAY ==
[2022-08-06 18:41] LABS: HPV APTIMA, High Risk Negative (Negative)
== END | disposition home or self-care (01) ==
LOC: LABSPEC 16:06
PROVIDERS: PCP Internal Medicine; Referring Provider Nurse Practitioner Women's Health; Visit Provider Nurse Practitioner Women's Health
DX: Z01.419 Encounter for gynecological examination (general) (routine) without abnormal findings (principal)
CPT/HCPCS: 87624; 88175; G0145

== ENCOUNTER 2022-08-31 07:21 | Outpatient (RCR) | payer OTHER, SELFPAY ==
[2022-08-31 08:20] LABS: Estradiol 64.8 pg/mL; Prolactin 16.6 ng/mL
[2022-08-31 08:50] LABS: Progesterone Level 25.62 ng/mL (See Comment); Vitamin B12 872 pg/mL (211-911)
== END 2022-08-31 18:00 | disposition home or self-care (01) ==
LOC: LAB 07:21
PROVIDERS: PCP Internal Medicine
DX: N92.6 Irregular menstruation, unspecified
CPT/HCPCS: 36415; 82306; 82607; 82627; 82670; 84144; 84146; 82626

== ENCOUNTER → 2022-09-27 | Outpatient (CLI) | payer OTHER, SELFPAY ==
--- NOTE | 2022-09-27 09:44 | RAD_ITS ---
STUDY: X-RAY CHEST REASON FOR EXAM: Female, 32 years old. Cough with rib pain. TECHNIQUE: Frontal and lateral views of the chest. COMPARISON: None. FINDINGS: The lungs are clear and expanded. There is no demonstrated pleural abnormality. Normal size heart. Normal mediastinum and sri. Normal visualized pulmonary arteries. Normal visualized aortic arch and descending thoracic aorta. Normal visualized thoracic spine. Normal visualized ribs, clavicles, and shoulders. There is no demonstrated abnormality of the visualized soft tissue structures of the upper abdomen. RAD/Chest PA and Lateral IMPRESSION: No active or acute cardiopulmonary disease. Electronically Signed: Ramsey Arellano, at 10:17 EDT ,
[2022-09-27 10:54] LABS: Absolute Lymphocyte Count 1.44 X10^3/uL (0.83-4.51); Absolute Neutrophil Count 7.2 X10^3/uL (2.0-7.7); Basophil# 0.12 X10^3/uL; Basophil% 1.2 % (0-1); Eosinophil# 0.48 X10^3/uL; Eosinophils% 4.8 % (0-5); Hematocrit 42.9 % (37-47); Hemoglobin 14.2 g/dL (12.0-15.0); Lymphocyte # 1.44 X10^3/ul (0.83-4.51); Lymphocyte % 14.4 % (19-41); Mean Corp Hgb Conc 33.1 g/dL (32-36); Mean Corpuscular Hgb 29.9 pg (27.0-32.0); Mean Corpuscular Volume 90.3 fL (81-99); Mean Platelet Vol. 10.1 fl (6.2-12.0); Monocyte# 0.76 X10^3/uL; Monocyte% 7.6 % (0-10); NRBC Flagged by Analyzer 0 % (0-5); Neutrophil # 7.15 X10^3/uL (2.7-7.7); Neutrophil % 71.7 % (47-70); Platelet Count 335 K/mm3 (150-450); RBC Distribution Width CV 12.9 % (11.6-14.6); RBC Distribution Width SD 42.4 fl (35.1-43.9); Red Blood Count 4.75 M/mm3 (4.2-5.4)
[2022-09-27 11:03] LABS: D-Dimer Quantitative (DVT/PE) 0.36 FEU/ug/m (0.27-0.49)
[2022-09-27 11:23] LABS: AST(SGOT) 15 U/L (15-37); Alanine Aminotransfer ALT/SGPT 30 U/L (13-56); Alkaline Phosphatase 108 U/L (45-117); Anion Gap 6 (5-15); BUN 9 mg/dL (7-18); BUN/Creat Ratio 12.5 RATIO (10-20); Chloride 106 mmol/L (98-107); Creatinine, Serum 0.72 mg/dL (0.55-1.02); EST Glomerular Filtration Rate 100 mL/min (>60); Est Glom Filt Rate - Afr Amer 121 mL/min (>60); Glucose 108 mg/dL (74-106); Potassium 3.7 mmol/L (3.5-5.1); Sodium Level 139 mmol/L (136-145)
--- NOTE | 2022-09-27 13:50 | RAD_ITS ---
STUDY: X-RAY - UNILATERAL RIBS ( RIGHT ) REASON FOR EXAM: Female, 32 years old. Right rib pain. TECHNIQUE: 4 view(s) of the ribs. COMPARISON: Chest x-ray dated today. FINDINGS: Normal ribs. No displaced rib fracture.. Visualized lung is normal. RAD/Ribs Unil 2V No CXR IMPRESSION: No abnormality on the examination of the right ribs. Electronically Signed: Ramsey Arellano, at 15:43 EDT ,
== END | disposition home or self-care (01) ==
PROVIDERS: PCP Internal Medicine; Referring Provider Internal Medicine; Visit Provider Internal Medicine
DX: R05.9 Cough, unspecified (principal); R07.81 Pleurodynia
CPT/HCPCS: 36415; 71046; 71100; 80053; 85025; 85379

== ENCOUNTER 2022-09-30 07:18 | Outpatient (RCR) | payer OTHER, SELFPAY ==
[2022-09-30 08:46] LABS: Progesterone Level 21.36 ng/mL (See Comment)
== END 2022-10-08 20:59 | disposition home or self-care (01) ==
LOC: LAB 07:18
PROVIDERS: PCP Internal Medicine
DX: N92.6 Irregular menstruation, unspecified (principal)
CPT/HCPCS: 36415; 82670; 84144

== ENCOUNTER → 2022-10-06 | Outpatient (CLI) | payer OTHER, SELFPAY ==
[2022-10-06 09:30] LABS: Glucose GTT-30 minutes 141 mg/dL (110-170)
[2022-10-06 09:42] LABS: Glucose GTT- Fasting 98 mg/dL (74-106)
[2022-10-06 09:53] LABS: Insulin 75GTT - 30 MIN 74.2 mU/L (Not Estab.)
[2022-10-06 09:53] LABS: Insulin 75GTT - Fasting 12.7 mU/L (2.6-37.6)
[2022-10-06 10:53] LABS: Glucose 149 mg/dL (74-106)
[2022-10-06 10:53] LABS: Glucose GTT- 2 Hour 99 mg/dL (70-120)
[2022-10-06 11:03] LABS: Insulin 116.9 mU/L (2.6-37.6)
[2022-10-06 11:06] LABS: Insulin 75GTT - 60 min 114.3 mU/L (Not Estab)
[2022-10-06 11:12] LABS: Glucose GTT- 1 Hour 167 mg/dL (120-170)
== END | disposition home or self-care (01) ==
PROVIDERS: PCP Internal Medicine
DX: N92.6 Irregular menstruation, unspecified (principal)
CPT/HCPCS: 36415; 82947; 82951; 82952; 83525

== ENCOUNTER 2022-10-29 07:07 | Outpatient (RCR) | payer OTHER, SELFPAY ==
[2022-10-29 08:13] LABS: Estradiol 106.8 pg/mL
[2022-10-29 09:11] LABS: Progesterone Level 21.95 ng/mL (See Comment)
== END 2022-11-07 00:21 | disposition home or self-care (01) ==
LOC: LAB 07:07
PROVIDERS: PCP Internal Medicine
DX: N92.6 Irregular menstruation, unspecified (principal)
CPT/HCPCS: 36415; 82670; 84144

== ENCOUNTER → 2022-11-02 | Outpatient (CLI) | payer OTHER, SELFPAY ==
--- NOTE | 2022-11-02 13:40 | EKG12_ITS ---
Test Reason : PALPS Blood Pressure : / mmHG Vent. Rate : 096 BPM Atrial Rate : 096 BPM P-R Int : 098 ms QRS Dur : 082 ms QT Int : 340 ms P-R-T Axes : 040 031 026 degrees QTc Int : 429 ms Sinus rhythm with sinus arrhythmia with short [place] Otherwise normal ECG Confirmed by DARREN RUEDA, NELA ([id number]), editor greeting card MARIO MORROW ([id number]) on 11/04/2022 9:25:23 AM Referred By: Carlene Lopez Confirmed By:NELA BANKS MD
== END | disposition home or self-care (01) ==
LOC: PSN 13:39
PROVIDERS: PCP Internal Medicine; Referring Provider Internal Medicine; Visit Provider Internal Medicine
DX: R00.2 Palpitations (principal)
CPT/HCPCS: 93005

== ENCOUNTER → 2022-11-10 | Outpatient (CLI) | payer OTHER, SELFPAY | END | disposition home or self-care (01) | LOC: PSN 06:59 | PROVIDERS: PCP Internal Medicine; Referring Provider Internal Medicine; Visit Provider Internal Medicine | DX: R00.2 Palpitations (principal); R00.0 Tachycardia, unspecified | CPT/HCPCS: 93225; 93226 ==

== ENCOUNTER 2022-12-07 08:11 | Outpatient (RCR) | payer OTHER, SELFPAY ==
[2022-12-07 09:07] LABS: Progesterone Level 21.61 ng/mL (See Comment)
[2022-12-07 09:17] LABS: Estradiol 83.8 pg/mL
== END 2022-12-07 08:30 | disposition home or self-care (01) ==
LOC: LAB 08:11
PROVIDERS: PCP Internal Medicine
DX: N92.6 Irregular menstruation, unspecified (principal)
CPT/HCPCS: 36415; 82670; 84144

== ENCOUNTER 2023-02-09 07:44 | Outpatient (RCR) | payer OTHER, SELFPAY ==
[2023-02-09 08:35] LABS: Progesterone Level 19.74 ng/mL (See Comment)
[2023-02-09 08:40] LABS: Estradiol 106.6 pg/mL; Free T3 2.2 pg/mL (2.18-3.98); T4 Free Direct 0.85 ng/dL (0.76-1.46); Thyroid Stim Hormone (TSH) 0.09 uIU/mL (0.358-3.74)
== END 2023-02-09 18:00 | disposition home or self-care (01) ==
LOC: LAB 07:44
PROVIDERS: PCP Internal Medicine
DX: N92.6 Irregular menstruation, unspecified (principal)
CPT/HCPCS: 36415; 82670; 84144; 84439; 84443; 84481

== ENCOUNTER 2023-04-09 09:31 | Outpatient (RCR) | payer OTHER, SELFPAY ==
[2023-04-09 10:51] LABS: Free T3 2.1 pg/mL (2.18-3.98); T4 Free Direct 0.89 ng/dL (0.76-1.46); Thyroid Stim Hormone (TSH) 2.51 uIU/mL (0.358-3.74)
== END 2023-04-09 18:00 | disposition home or self-care (01) ==
LOC: LAB 09:31
PROVIDERS: PCP Internal Medicine
DX: N92.6 Irregular menstruation, unspecified (principal)
CPT/HCPCS: 36415; 84439; 84443; 84481

== ENCOUNTER 2023-04-20 07:35 | Outpatient (RCR) | payer OTHER, SELFPAY ==
[2023-04-20 08:49] LABS: Progesterone Level 18.56 ng/mL (See Comment)
[2023-04-20 08:52] LABS: Estradiol 104.3 pg/mL
== END 2023-04-20 18:00 | disposition home or self-care (01) ==
LOC: LAB 07:35
PROVIDERS: PCP Internal Medicine
DX: N92.6 Irregular menstruation, unspecified (principal)
CPT/HCPCS: 36415; 82670; 84144

== ENCOUNTER → 2023-05-09 | Outpatient (CLI) | payer OTHER, SELFPAY ==
--- NOTE | 2023-05-09 16:00 | RAD_ITS ---
STUDY: X-RAY - SACRUM/COCCYX REASON FOR EXAM: Female, 33 years old. fall/vagal TECHNIQUE: 3 view(s) of the sacrum and coccyx were obtained. COMPARISON: None. FINDINGS: Normal bilateral sacroiliac joints. Normal visualized sacral ala and fused sacral bodies. Normal sacrococcygeal junction with a normal angulation. Normal coccygeal segments. The presacral soft tissue structures are unremarkable. There is no demonstrated fracture. RAD/Sacrum-Coccyx min 2 Views IMPRESSION: Normal x-rays of the sacrum and coccyx. Electronically Signed: Diego Merchant MD at 22:54 EDT ,
== END | disposition home or self-care (01) ==
LOC: RAD 15:53
PROVIDERS: PCP Internal Medicine; Referring Provider Internal Medicine; Visit Provider Internal Medicine
DX: S30.0XXA Contusion of lower back and pelvis, initial encounter (principal); R55 Syncope and collapse
CPT/HCPCS: 72220

== ENCOUNTER 2023-06-01 07:22 | Outpatient (RCR) | payer OTHER, SELFPAY ==
[2023-06-01 08:59] LABS: Progesterone Level 14.77 ng/mL (See Comment)
[2023-06-01 09:04] LABS: Estradiol 83.3 pg/mL
== END 2023-06-09 18:00 | disposition home or self-care (01) ==
LOC: LAB 07:22
PROVIDERS: PCP Internal Medicine
DX: N92.6 Irregular menstruation, unspecified (principal)
CPT/HCPCS: 36415; 82670; 84144

== ENCOUNTER → 2023-06-06 | Outpatient (CLI) | payer OTHER, SELFPAY ==
[2023-06-06 11:33] LABS: Free T3 2.8 pg/mL (2.18-3.98); T4 Free Direct 1.28 ng/dL (0.76-1.46); Thyroid Stim Hormone (TSH) 0.59 uIU/mL (0.358-3.74)
[2023-06-09 02:07] LABS: T3 Reverse 21.5 ng/dL (9.2-24.1); Thyroid Peroxidase AB 407 IU/mL (0-34)
== END | disposition home or self-care (01) ==
LOC: LAB 09:10
PROVIDERS: PCP Internal Medicine
DX: N92.6 Irregular menstruation, unspecified (principal)
CPT/HCPCS: 36415; 84146; 84439; 84443; 84481; 84482; 86376

== ENCOUNTER → 2023-06-09 | Outpatient (CLI) | payer OTHER, SELFPAY ==
--- NOTE | 2023-06-09 12:55 | ECHOD_ITS ---
Reason For Study: Tachycardia Procedure This was a 2D Doppler, Color Flow transthoracic echocardiogram. Exam performed in department. Left Ventricle Normal LV size. Left ventricular systolic function is normal. The estimated ejection fraction is 55 %. Normal diastology for age. No regional wall motion abnormalities noted. Right Ventricle Normal RV size. Normal systolic function. Atria Normal left atrium. Normal right atrium. Mitral Valve Normal mitral valve. Tricuspid Valve Normal tricuspid valve. Aortic Valve Normal aortic valve. Pulmonic Valve Normal pulmonic valve. Great Vessels Normal aortic root. Pericardium/Pleural No pericardial effusion. MMode/2D Measurements & Calculations LVIDd: 4.9 cm IVSd: 0.91 cm Ao root diam: 3.0 cm LVIDs: 3.3 cm LVPWd: 1.0 cm RVDd: 3.0 cm FS: 33.3 % LAV(MOD-bp): 38.3 ml LVAd ap4: 28.0 cm2 LVAd ap2: 27.6 cm2 LAV(MOD-bp) Indexed: 17.7 ml/m2 LVLd ap4: 7.8 cm LVLd ap2: 7.9 cm LAV(MOD-sp2): 44.4 ml EDV(MOD-sp4): 83.4 ml EDV(MOD-sp2): 81.0 ml LAV(MOD-sp4): 30.7 ml EDV(sp4-el): 85.3 ml EDV(sp2-el): 82.2 ml LVAs ap4: 17.4 cm2 LVAs ap2: 16.9 cm2 LVLs ap4: 6.9 cm LVLs ap2: 6.9 cm ESV(MOD-sp4): 37.3 ml ESV(MOD-sp2): 35.0 ml ESV(sp4-el): 37.4 ml ESV(sp2-el): 35.0 ml EF(MOD-sp4): 55.3 % EF(MOD-sp2): 56.8 % EF(sp4-el): 56.2 % SV(MOD-sp4): 46.1 ml SV(MOD-sp2): 46.0 ml SV(sp4-el): 48.0 ml LA dimension(2D): 3.8 cm LA A4 area: 13.9 cm2 RA A4 area: 11.0 cm2 TAPSE: 2.1 cm Time Measurements MV dec time: 0.17 sec Doppler Measurements & Calculations MV E max daniel: 84.1 cm/sec Lat Peak E' Daniel: 16.6 cm/sec Med Peak E' Daniel: 9.6 cm/sec MV A max daniel: 58.5 cm/sec E/E' lat: 5.1 E/E' med: 8.7 MV E/A: 1.4 MV dec slope: 489.6 cm/sec2 Ao V2 max: 123.2 cm/sec LV V1 max: 98.9 cm/sec Ao max P.1 mmHg LV V1 max P.9 mmHg LV V1 mean P.5 mmHg LV V1 mean: 74.7 cm/sec LV V1 VTI: 19.6 cm PA V2 max: 84.8 cm/sec ECHO/Echo Complete Interpretation Summary Normal LV size. Left ventricular systolic function is normal. The estimated ejection fraction is 55 %. Structurally normal valves. Ordering Physician: Carlene Lopez Referring Physician: Carlene Lopez Performed By: Suma Cobian RDCS
== END | disposition home or self-care (01) ==
LOC: CVS 12:54
PROVIDERS: PCP Internal Medicine; Referring Provider Internal Medicine; Visit Provider Internal Medicine
DX: N92.6 Irregular menstruation, unspecified (principal); R00.0 Tachycardia, unspecified; R00.2 Palpitations; R55 Syncope and collapse
CPT/HCPCS: 93306

== ENCOUNTER → 2023-07-12 | Outpatient (CLI) | payer OTHER, SELFPAY ==
--- OUTSIDE RECORDS SUMMARY | 2023-07-12 13:22 | XMS RPT_ITS | CCD ---
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 history, performing a medically appropriate examination, counseling and educating the patient/family/caregiver, and ordering medications, tests, or procedures. Jay Wilson APRN.[facility] Neuromuscular Medicine [address] [place]. [address] Appointment: [phone] In regards to blood work, testing, and radiology reports these are released automatically to the patients. We do not comment on most testing on [facility] in a message or commentary unless there is a concern. You will not receive a message from me of the result unless there is a specific concern. Make sure to check your my chart email or tunde. My impression and recommendations were discussed with the patient and they were provided with a detailed after summary visit highlighting such. Patient verbalizes understanding and I have addressed concerns and questions at this visit. Reassurance provided. Medication side effects discussed as applicable. . 1. This office note has been dictated and may contain minor typographic errors that escaped review. 2. The nursing staff and medical assistants are a major part of YOUR TREATMENT TEAM and will be handling your phone calls and inquiries, if any. Unless explicitly told otherwise at the time of your office visit, your study results and ensuing treatment plans will be discussed during your follow-up appointment. If you do not have a follow-up appointment and wish to discuss any issues directly with me, please feel free to obtain one. 3. It is my practice to not fill disability or any other insurance-related forms/documention. All of the office notes, study results, and other pertinent documentation generated as part of your evaluation will be available to you and to your Primary Care Physician (PCP). Use of this material to complete such forms will be at the discretion of your PCP/referring physician Answers submitted by the patient for this visit: Compass 31 (Submitted on 06/08/2023) In the past year, have you ever felt faint, dizzy, goofy , or had difficulty thinking soon after standing up from a sitting or lying position?: No In the past year, have you ever noticed color changes in your skin, such as red, white, or purple?: No In the past 5 years, what changes, if any, have occurred in your general body sweating?: I sweat much more than I used to Do your eyes feel excessively dry? : No Does your mouth feel excessively dry? : No For the symptom of dry eyes or dry mouth that you have had for the longest period of time, is this symptom:: I have not had any of these symptoms In the past year, have you noticed any changes in how quickly you get full when eating a meal?: I get full more quickly now than I used to In the past year, have you felt excessively full or persistently full (bloated feeling) after a meal?: Never In the past year, have you vomited after a meal? : Never In the past year, have you had a cramping or colicky abdominal pain?: Never In the past year, have you had any bouts of diarrhea?: Yes In the past year, have you been constipated? : No In the past year, have you ever lost control of your bladder function?: Occasionally In the past year, have you had difficulty passing urine?: Never In the past year, have you had trouble completely emptying your bladder?: Never In the past year, without sunglasses or tinted glasses, has bright light bothered your eyes?: Constantly In the past year, have you had trouble focusing your eyes?: Occasionally Is this most troublesome symptom with your eyes (i.e. sensitivity to bright light or trouble focusing) getting:: Staying about the same (Submitted on 06/08/2023) How frequently does this occur?: Frequently How severe are these bouts of diarrhea?: Mild Are your bouts with diarrhea getting:: Much better (Submitted on 06/08/2023) How severe is this sensitivity to bright light?: Moderate (Submitted on 06/08/2023) How severe is this focusing problem? : Mild documented in this encounter [facility] Note 05-26-2023 Telephone Encounter - Clare Gomes - 05/26/2023 4:21 PM EST Note Date & Type Note Facility 05-26-2023 Miscellaneous Notes Formattin g of this note might be different from the original. States that referral was faxed on May 17 at 10am, patient has also called yet unable to get a call back or get through to anyone. Notified that Dr. Saavedra sees in 2 different department specialties, and that if fax wasn't sent to our dept specifically, we wouldn't be aware. Gave her phone + fax number for General Neuro triage stating to call + ask for patient to be triaged to schedule with Dr. Saavedra per patient's request with dx. documented in this encounter [facility] Evaluation note Note Date & Type Note Facility documented in this encounter [facility] Evaluation note Note Date & Type Note Facility documented in this encounter [facility] Reason for referral (narrative) Outpatient Procedure (Routine) - Authorized Note Date & Type Note Facility Referral ID Status Reason Start Date Expiration Date Visits Requested Visits Authorized [id number] Authorized Auto-Generat ed Referral 3 06/08/2024 1 1 [facility] Summary Purpose Family History No Family History Records FoundNo Family History Records FoundNo Family History Records FoundNo Family History Records Found Advance Directives No Advanced Directives Records FoundNo Advanced Directives Records FoundNo Advanced Directives Records FoundNo Advanced Directives Records Found Reason for Referral Specialty Diagnoses / Procedures Referred By Federico ribeiro Referred To Contact Cardiology Diagnoses Tachycardia Procedures CONSULT TO CARDIOLOGY OFFICE/OUTPATIENT [facility] 60-74 MINUTES Jay Wilson APRN.CABINET FINISHER [address] [facility] [place] [address] Referral ID Status Reason Start Date Expiration Date Visits Requested Visits Authorized [id number] Pending Review PCP Requested Referral 3 06/08/2024 1 1 Additional Source Comments INFORMATION SOURCE (unrecogn ized section and content) DATE CREATED AUTHOR AUTHOR'S ORGANIZ ATION 10/13/2022 [facility] DATE CREATED AUTHOR AUTHOR'S ORGANIZ ATION 06/30/2023 [facility] DATE CREATED AUTHOR AUTHOR'S ORGANIZ ATION 07/09/2023 [facility] nter Source Comments (unrecognize d section and content) In the event this informatio n is protected by the Federal Confidentiality of Alcohol and Drug Abuse Patient Records regulations: The Federal rules restrict any use of the information to criminally investigate or prosecute any alcohol or drug abuse patient.[facility] the event this information is protected by the Federal Confidentiality of Alcohol and Drug Abuse Patient Records regulations: The Federal rules restrict any use of the information to criminally investigate or prosecute any alcohol or drug abuse patient.[facility] the event this information is protected by the Federal Confidentiality of Alcohol and Drug Abuse Patient Records regulations: The Federal rules restrict any use of the information to criminally investigate or prosecute any alcohol or drug abuse patient.[facility] Reason for Visit (unrecogniz ed section and content) Reason Comments New Patient Consult Care Teams (unrecognized sec tion and content) 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 This clinical summary was aggregated from multiple sources. Caution should be exercised in using it in the provision of clinical care. This summary normalizes information from multiple sources, and as a consequence, information in this document may materially change the coding, format and clinical context of patient data. In addition, data may be omitted in some cases. CLINICAL DECISIONS SHOULD BE BASED ON THE PRIMARY CLINICAL RECORDS. [facility]. provides no warranty or guarantee of the accuracy or completeness of information in this document.
== END | disposition home or self-care (01) ==
LOC: SL 13:01
PROVIDERS: PCP Internal Medicine; Visit Provider Internal Medicine
DX: R55 Syncope and collapse (principal); G47.30 Sleep apnea, unspecified
CPT/HCPCS: 95806

== ENCOUNTER → 2023-07-25 | Outpatient (CLI) | payer OTHER, SELFPAY ==
--- OUTSIDE RECORDS SUMMARY | 2023-07-25 09:24 | XMS RPT_ITS | CCD ---
Author Name Unknown Address [address] [place] [address] Organization [facility] Care Team Providers Care Back Filler Operator Name Role Phone INOCENCIA DEAN MD Unavailable [...] Translations: [GRAPE SEED OIL] Drug Allergy 06-09-2023 [facility] Medications Completed/Discontinued Medications Medication Drug Class(es) Dates Sig (Normalized) Sig (Original) cholecalciferol 5000 unt / folic acid 1 mg oral tablet (2 sources) Vitamin D vitamin D3-folic acid 125 mcg (5,000 unit)-1 mg tab chorionic gonadotropin 89608 unt/ml injectable solution (2 sources) Gonadotropin Start: [...] 167.6 cm Jay Wilson APRN.CNP Work Phone: [facility] 06-09-2023 09:02-0500 Body weight 109.14 kg Jay Wilson APRN.CNP Work Phone: [facility] 06-09-2023 09:02-0500 Diastolic blood pressure 88 mm[Hg] Jay Wilson APRN.CNP Work Phone: [facility] 06-09-2023 09:02-0500 Heart rate 107 /min Jay Wilson APRN.CNP Work Phone: [facility] 06-09-2023 09:02-0500 SaO2% (BldA) [Mass fraction] 98 % Jay Wilson APRN.CNP Work Phone: [facility] 06-09-2023 09:02-0500 Systolic blood pressure 149 mm[Hg] Jay Wilson APRN.CNP Work Phone: [facility] Encounters Encounter Date Encounter Type Care Provider Facility Start: 06-29-2023 End: 06-30-2023 [facility] Start: 06-22-2023 End: 06-22-2023 ambulatory JAY WILSON Facility:[id number] Start: 06-20-2023 End: 06-21-2023 ambulatory CHAZ C (HIST) [facility] Facility:[facility] Start: 06-11-2023 ambulatory CHAZ C (HIST) [facility] Facility:[facility] Start: 06-09-2023 End: 06-09-2023 Patient encounter procedure Jay Wilson APRN.CNP Work Phone: Neurology Plan of Treatment Date Care Activity Detail Author Start: 06-09-2023 End: 09-08-2023 CATECHOLAMINES FRACTIONATED, URINE FREE CATECHOLAMINES FRACTIONATED, URINE FREE Lab Routine Tachycardia Expected: 06/09/2023, Expires: 09/08/2023 [facility] Work Phone: Immunizations Immunization Date Immunization Notes Care Provider Hetal kate 01-25-2012 hepatitis A vaccine, unspecified formulation Neurology Provider [facility] Work Phone: 06-02-2011 hepatitis A vaccine, unspecified formulation Neurology Provider [facility] 03-05-2009 hepatitis B vaccine, adult dosage Neurology Provider [facility] 03-05-2009 human papilloma viru s vaccine, quadrivalent Neurology Provider [facility] 09-13-2008 hepatitis B vaccine, pediatric or pediatric/adolescent dosage Neurology Provider [facility] 09-13-2008 human papilloma viru s vaccine, quadrivalent Neurology Provider [facility] 07-23-2008 hepatitis B vaccine, pediatric or pediatric/adolescent dosage Neurology [facility] Work Phone: 07-23-2008 human papilloma viru s vaccine, quadrivalent Neurology [facility] Work Phone: 07-23-2008 Meningococcal, MCV4, unspecified conjugate formulation(groups A, C, Y and W-135) Neurology [facility] Work Phone: 12-01-2006 tetanus toxoid, redu belinda diphtheria toxoid, and acellular pertussis vaccine, adsorbed Neurology [facility] Work Phone: 02-11-2003 measles, mumps and rubella virus vaccine Neurology [facility] Work Phone: 02-23-1999 measles, mumps and rubella virus vaccine Neurology [facility] Work Phone: 04-10-1997 chicken pox (disease) Neurology [facility] Work Phone: 01-18-1996 diphtheria, tetanus toxoids and acellular pertussis vaccine Neurology [facility] Work Phone: 01-18-1996 trivalent poliovirus vaccine, live, oral Neurology [facility] Work Phone: 08-06-1992 diphtheria, tetanus toxoids and acellular pertussis vaccine Neurology [facility] Work Phone: 08-06-1992 trivalent poliovirus vaccine, live, oral Neurology [facility] Work Phone: 05-01-1992 haemophilus influenz ae type b vaccine, HbOC conjugate Neurology [facility] Work Phone: 05-01-1992 measles, mumps and rubella virus vaccine Neurology [facility] Work Phone: 1991 DTP-Haemophilus influenzae type b conjugate vaccine Neurology [facility] Work Phone: 1991 trivalent poliovirus vaccine, live, oral Neurology [facility] Work Phone: 1991 DTP-Haemophilus influenzae type b conjugate vaccine Neurology Provider [facility] Work Phone: 1991 trivalent poliovirus vaccine, live, oral Neurology Provider [facility] Work Phone: 1991 DTP-Haemophilus influenzae type b conjugate vaccine Neurology Provider [facility] Work Phone: 1991 trivalent poliovirus vaccine, live, oral Neurology Provider [facility] Work Phone: Payers Date Payer Category Payer Unknown [id number] 2022 Unknown [employer] P[employer] [id number] 2022-Present [phone] [address] [place] [address] PPO [id number] 1991 Unknown [id number] 1991 Unknown [id number] 1991 Unknown [id number] Unknown [id number] Social History Date Type Detail Facility [facility]: [facility] Start: 06-02-2011 Tobacco use and exposure Smoke less tobacco non-user [facility] Start: 02-24-2022 End: 06-09-2023 Alcohol intake Current non-drinker of alcohol (finding) [facility] Start: 01-08-2018 End: 06-09-2023 History of Social function [facility] Start: 01-08-2018 End: 06-09-2023 Tobacco use panel [facility] Start: 1990 Sex Assigned At Female [facility] Start: 10-07-2022 Gender identity Identifies as female gender (finding) [facility] Start: 10-07-2022 Sexual orientation Heterosexual (elif troncoso) [facility] Adult Depression Screening Assessment 0 [facility] Progress note 07-07-2023 Note Date & Type Note Facility 07-07-2023 Note HNO ID: [id number] Author: Romeo Maldonado MD Service: ? Author Type: Physician Type: Progress Notes Filed: 07/07/2023 12:29 PM Note Text: Summary: Holter Monitor Report NSR/Sinus Tachycardia 71-163 bpm, ave 103 bpm. Rare PAC's, with a 4 beat run of PAT at 175 bpm. Rare PVC's No heart block or Afib. Palpitations and SOB, correlating with NSR and sinus tachycardia [facility] Progress note 06-09-2023 Note Date & Type Note Facility 06-09-2023 Note HNO ID: [id number] Author: Jay Wilson APRN.CNP Service: ? Author Type: Nurse Practitioner Type: Progress Notes Filed: 06/09/2023 1:01 PM Note Text: [facility] New Patient Evaluation CHIEF [...] Type Note Facility 06-09-2023 Instructions Jay Wilson APRN.FEED MILL MANAGER - 06/09/2023 9:57 AM EST director of health education Urine panel Consult to cardiology Send echo and pervious layout former Follow up after testing Conservative Measures: Make [...] quickly and transiently. documented in this encounter [facility] History of Present illness Narrative 06-09-2023 Jay Wilson APRN.CNP - 06/09/2023 9:00 AM EST Note Date & Type Note Facility 06-09-2023 History of Presen t illness Narrative Images from the original note were not included. [facility] New Patient Evaluation CHIEF [...] which included preparing to see the patient, [id number] patient care, completing clinical documentation, obtaining and/or reviewing separately obtained history, performing a medically appropriate examination, counseling and educating the patient/family/caregiver, and ordering medications, tests, or procedures. Jay Wilson APRN.[facility] Neuromuscular Medicine [address] [place]. [address] Appointment: [phone] In regards to blood work, testing, and radiology reports these are released automatically to the patients. We do not comment on most testing on [facility] in a message or commentary unless there [...] problem? : Mild documented in this encounter [facility] Note 05-26-2023 Telephone Encounter - Clare [...] request with dx. documented in this encounter [facility] Evaluation note Note Date & Type Note Facility documented in this encounter [facility] Evaluation note Note Date & Type Note Facility documented in this encounter [facility] Reason for referral (narrative) Outpatient Procedure (Routine) - Authorized Note Date & Type Note Facility Referral ID Status Reason Start Date Expiration Date Visits Requested Visits Authorized [id number] Authorized Auto-Generat ed Referral 3 06/08/2024 1 1 [facility] Summary Purpose Family History No Family History Records FoundNo Family History Records FoundNo Family History Records FoundNo Family History Records Found Advance Directives No Advanced Directives Records FoundNo Advanced Directives Records FoundNo Advanced Directives Records FoundNo Advanced Directives Records Found Reason for Referral Specialty Diagnoses / Procedures Referred By Federico ribeiro Referred To Contact Cardiology Diagnoses Tachycardia Procedures CONSULT TO CARDIOLOGY OFFICE/OUTPATIENT [facility] 60-74 MINUTES Jay Wilson APRN.FEED MILL MANAGER [address] [facility] [place] [address] Referral ID Status Reason Start Date Expiration Date Visits Requested Visits Authorized [id number] Pending Review PCP Requested Referral 3 06/08/2024 1 1 Additional Source Comments INFORMATION SOURCE (unrecogn ized section and content) DATE CREATED AUTHOR AUTHOR'S ORGANIZ ATION 10/13/2022 [facility] DATE CREATED AUTHOR AUTHOR'S ORGANIZ ATION 06/30/2023 [facility] DATE CREATED AUTHOR AUTHOR'S ORGANIZ ATION 07/09/2023 [facility] nter Source Comments (unrecognize d section and content) In the event this informatio n is protected by the Federal Confidentiality of Alcohol and Drug Abuse Patient Records regulations: The Federal rules restrict any use of the information to criminally investigate or prosecute any alcohol or drug abuse patient.[facility] the event this information is protected by the Federal Confidentiality of Alcohol and Drug Abuse Patient Records regulations: The Federal rules restrict any use of the information to criminally investigate or prosecute any alcohol or drug abuse patient.[facility] the event this information is protected by the Federal Confidentiality of Alcohol and Drug Abuse Patient Records regulations: The Federal rules restrict any use of the information to criminally investigate or prosecute any alcohol or drug abuse patient.[facility] Reason for Visit (unrecogniz ed section and content) Reason Comments New Patient Consult Care Teams (unrecognized sec tion and content) Back Filler Operator Relationship Specialty Start Date End Date Chaz Romero (Hist) NO FORWARDING ADDRESS PCP - General 01/16/03 Inocencia Dean MD [address] [address] Referring Internal Medicine 05/31/23 Back Filler Operator Relationship Specialty Start Date End Date Chaz Romero (Hist) NO FORWARDING ADDRESS PCP - General 01/16/03 Inocencia Dean MD [address] [address] Referring Internal Medicine 05/31/23 FOR RECORDS PERTAINING [...] BE BASED ON THE PRIMARY CLINICAL RECORDS. [facility]. provides no warranty or guarantee of the accuracy or completeness of information in this document.
== END | disposition home or self-care (01) ==
LOC: CVS 08:57
PROVIDERS: PCP Internal Medicine; Referring Provider Internal Medicine Cardiovascular Disease; Visit Provider Internal Medicine Cardiovascular Disease
DX: I10 Essential (primary) hypertension (principal)
CPT/HCPCS: 93788

== ENCOUNTER → 2023-07-26 | Outpatient (CLI) | payer OTHER, SELFPAY ==
--- NOTE | 2023-07-26 15:56 | CT_ITS ---
INDICATION: Severe hypertension EXAMINATION: CTA abdomen and pelvis - TECHNIQUE: Routine abdominal CT angiogram protocol was performed with IV contrast. MIP images provided. A radiation dose optimization technique was used for this scan. IV Contrast dosage and agent: 100 cc of Isovue-370. Radiation dose DLP 1299.07 mGy / cm. The CTDI : 25.58 COMPARISON: None. FINDINGS: Lung bases: Normal. Liver: Indeterminate low-attenuation structure within the posterior aspect of the right liver lobe measuring 6.4 mm with mild peripheral nodular enhancement which may be associated with hemangioma otherwise incompletely characterize. Otherwise normal liver. No bile ductal dilatation. Gallbladder: Normal. Spleen: Normal. Adrenal gland: Normal. Kidneys: Normal. No hydronephrosis or stone formation. Pancreas:Normal. Bowel gas pattern: Nonobstructive. Appendix: Normal. Free air: None. Free fluid: None. Pelvis: Pelvic organs: There is a small left ovarian cyst measuring 1.2 cm. The uterus is anteverted, otherwise unremarkable. Bone survey: No aggressive bony lesions. No acute fractures. Adenopathy: No significant pathologic adenopathy detected. Other: None. Vascular: Normal aorta with no dissection or aneurysm. No stenosis. Normal bilateral renal arteries. Normal celiac artery, superior mesenteric artery and inferior mesenteric artery. Normal bilateral common and external iliac arteries. Normal bilateral internal iliac arteries. Normal bilateral common femoral and proximal superficial femoral arteries. CT/CTA Abd/Pelvis W/WO Contrast IMPRESSION: Normal CT angiogram of the abdomen and pelvis with no stenosis, occlusion or dissection. No aneurysm. Normal aortic branches as described. No acute process within the abdomen and pelvis. Indeterminate lesion within the posterior aspect of the right liver lobe most commonly associated with hemangioma, stable in the interval otherwise incompletely characterized. If indicated, this may be further assessed with ultrasound of the right upper quadrant in nonacute setting or three-phase CT of the upper abdomen with intravenous contrast for confirmation. Electronically Signed: Celena Gould MD at 17:27 EST ,
[2023-07-26 16:22] LABS: CREATININE FINGERSTICK < 1.0 mg/dL (0.55-1.02); EGFR FINGERSTICK > 60.0000 mL/min (>60)
--- OUTSIDE RECORDS SUMMARY | 2023-07-26 17:42 | XMS RPT_ITS | CCD ---
Author Name Unknown Address [address] [place] [address] Organization [facility] Care Team Providers Care Plate Hanger Name Role Phone INOCENCIA DEAN MD Unavailable Unavailable INOCENCIA DEAN MD Unavailable Unavailable INOCENCIA DEAN MD Unavailable Unavailable WYBRANNON ROJOY K Admitting Unavailable WYNESKI ALANA K Primary Care Unavailable WYNESKI, ALANA K Consulting Unavailable WYBRANNON ROJOY K [...] Translations: [GRAPE SEED OIL] Drug Allergy 06-09-2023 [facility] Medications Completed/Discontinued Medications Medication Drug Class(es) Dates Sig (Normalized) Sig (Original) cholecalciferol 5000 unt / folic acid 1 mg oral tablet (2 sources) Vitamin D vitamin D3-folic acid 125 mcg (5,000 unit)-1 mg tab chorionic gonadotropin 32441 unt/ml injectable solution (2 sources) Gonadotropin Start: [...] cm Jay Wilson APRN.CNP Work Phone: [facility] 06-09-2023 09:02-0500 Body weight 109.14 kg Jay Wilson APRN.CNP Work Phone: [facility] 06-09-2023 09:02-0500 Diastolic blood pressure 88 mm[Hg] Jay Wilson APRN.CNP Work Phone: [facility] 06-09-2023 09:02-0500 Heart rate 107 /min Jay Wilson APRN.CNP Work Phone: [facility] 06-09-2023 09:02-0500 SaO2% (BldA) [Mass fraction] 98 % Jay Wilson APRN.CNP Work Phone: [facility] 06-09-2023 09:02-0500 Systolic blood pressure 149 mm[Hg] Jay Wilson APRN.CNP Work Phone: [facility] Encounters Encounter Date Encounter Type Care Provider Facility Start: 06-29-2023 End: 06-30-2023 [facility] Start: 06-22-2023 End: 06-22-2023 ambulatory JAY WILSON Facility:[id number] Start: 06-20-2023 End: 06-21-2023 ambulatory CHAZ C (HIST) [facility] Facility:[facility] Start: 06-11-2023 ambulatory CHAZ C (HIST) [facility] Facility:[facility] Start: 06-09-2023 End: 06-09-2023 Patient encounter procedure Jay Wilson APRN.CNP Work Phone: Neurology Plan of Treatment Date Care Activity Detail Author Start: 06-09-2023 End: 09-08-2023 CATECHOLAMINES FRACTIONATED, URINE FREE CATECHOLAMINES FRACTIONATED, URINE FREE Lab Routine Tachycardia Expected: 06/09/2023, Expires: 09/08/2023 [facility] Work Phone: Immunizations Immunization Date Immunization Notes Care Provider Hetal kate 01-25-2012 hepatitis A vaccine, unspecified formulation Neurology Provider [facility] Work Phone: 06-02-2011 hepatitis A vaccine, unspecified formulation Neurology Provider [facility] 03-05-2009 hepatitis B vaccine, adult dosage Neurology Provider [facility] 03-05-2009 human papilloma viru s vaccine, quadrivalent Neurology Provider [facility] 09-13-2008 hepatitis B vaccine, pediatric or pediatric/adolescent dosage Neurology Provider [facility] 09-13-2008 human papilloma viru s vaccine, quadrivalent Neurology Provider [facility] 07-23-2008 hepatitis B vaccine, pediatric or pediatric/adolescent dosage Neurology [facility] Work Phone: 07-23-2008 human papilloma viru s vaccine, quadrivalent Neurology [facility] Work Phone: 07-23-2008 Meningococcal, MCV4, unspecified conjugate formulation(groups A, C, Y and W-135) Neurology [facility] Work Phone: 12-01-2006 tetanus toxoid, redu belinda diphtheria toxoid, and acellular pertussis vaccine, adsorbed Neurology [facility] Work Phone: 02-11-2003 measles, mumps and rubella virus vaccine Neurology [facility] Work Phone: 02-23-1999 measles, mumps and rubella virus vaccine Neurology [facility] Work Phone: 04-10-1997 chicken pox (disease) Neurology [facility] Work Phone: 01-18-1996 diphtheria, tetanus toxoids and acellular pertussis vaccine Neurology [facility] Work Phone: 01-18-1996 trivalent poliovirus vaccine, live, oral Neurology [facility] Work Phone: 08-06-1992 diphtheria, tetanus toxoids and acellular pertussis vaccine Neurology [facility] Work Phone: 08-06-1992 trivalent poliovirus vaccine, live, oral Neurology [facility] Work Phone: 05-01-1992 haemophilus influenz ae type b vaccine, HbOC conjugate Neurology [facility] Work Phone: 05-01-1992 measles, mumps and rubella virus vaccine Neurology [facility] Work Phone: 1991 DTP-Haemophilus influenzae type b conjugate vaccine Neurology [facility] Work Phone: 1991 trivalent poliovirus vaccine, live, oral Neurology [facility] Work Phone: 1991 DTP-Haemophilus influenzae type b conjugate vaccine Neurology Provider [facility] Work Phone: 1991 trivalent poliovirus vaccine, live, oral Neurology Provider [facility] Work Phone: 1991 DTP-Haemophilus influenzae type b conjugate vaccine Neurology Provider [facility] Work Phone: 1991 trivalent poliovirus vaccine, live, oral Neurology Provider [facility] Work Phone: Payers Date Payer Category Payer Unknown [id number] 2022 Unknown [employer] P[employer] [id number] 2022-Present [phone] [address] [place] [address] PPO [id number] 1991 Unknown [id number] 1991 Unknown [id number] 1991 Unknown [id number] Unknown [id number] Social History Date Type Detail Facility Start: [facility]02[facility] Start: 06-02-2011 Tobacco use and exposure Smoke less tobacco non-user [facility] Start: 02-24-2022 End: 06-09-2023 Alcohol intake Current non-drinker of alcohol (finding) [facility] Start: 01-08-2018 End: 06-09-2023 History of Social function [facility] Start: 01-08-2018 End: 06-09-2023 Tobacco use panel [facility] Start: 1990 Sex Assigned At Female [facility] Start: 10-07-2022 Gender identity Identifies as female gender (finding) [facility] Start: 10-07-2022 Sexual orientation Heterosexual (elif troncoso) [facility] Adult Depression Screening Assessment 0 [facility] Progress note 07-07-2023 Note Date & Type Note Facility 07-07-2023 Note HNO ID: [id number] Author: Romeo Maldonado MD Service: ? Author Type: Physician Type: Progress Notes Filed: 07/07/2023 12:29 PM Note Text: Summary: Holter Monitor Report NSR/Sinus Tachycardia 71-163 bpm, ave 103 bpm. Rare PAC's, with a 4 beat run of PAT at 175 bpm. Rare PVC's No heart block or Afib. Palpitations and SOB, correlating with NSR and sinus tachycardia [facility] Progress note 06-09-2023 Note Date & Type Note Facility 06-09-2023 Note HNO ID: [id number] Author: Jay Wilson APRN.CNP Service: ? Author Type: Nurse Practitioner Type: Progress Notes Filed: 06/09/2023 1:01 PM Note Text: [facility] New Patient [...] Type Note Facility 06-09-2023 Instructions Jay Wilson APRN.FIELD SUPPORT SPECIALIST - 06/09/2023 9:57 AM EST groundwater monitoring technician Urine panel Consult to cardiology Send echo and pervious groundwater monitoring technician Follow up after testing Conservative Measures: Make [...] and transiently. documented in this encounter [facility] History of Present illness Narrative 06-09-2023 Jay Wilson APRN.CNP - 06/09/2023 9:00 AM EST Note Date & Type Note Facility 06-09-2023 History of Presen t illness Narrative Images from the original note were not included. [facility] New Patient [...] which included preparing to see the patient, [id number] patient care, completing clinical documentation, obtaining and/or reviewing separately obtained history, performing a medically appropriate examination, counseling and educating the patient/family/caregiver, and ordering medications, tests, or procedures. Jay Wilson APRN.[facility] Neuromuscular [facility] [address] [place]. [address] Appointment: [phone] In regards to blood work, testing, and radiology reports these are released automatically to the patients. We do not comment on most testing on [place] in a message or commentary unless there [...] : Mild documented in this encounter [facility] Note 05-26-2023 Telephone Encounter - Clare [...] with dx. documented in this encounter [facility] Evaluation note Note Date & Type Note Facility documented in this encounter [facility] Evaluation note Note Date & Type Note Facility documented in this encounter [facility] Reason for referral (narrative) Outpatient Procedure (Routine) - Authorized Note Date & Type Note Facility Referral ID Status Reason Start Date Expiration Date Visits Requested Visits Authorized [id number] Authorized Auto-Generat ed Referral 3 06/08/2024 1 1 [facility] Summary Purpose Family History No Family History Records FoundNo Family History Records FoundNo Family History Records FoundNo Family History Records Found Advance Directives No Advanced Directives Records FoundNo Advanced Directives Records FoundNo Advanced Directives Records FoundNo Advanced Directives Records Found Reason for Referral Specialty Diagnoses / Procedures Referred By Federico ribeiro Referred To Contact Cardiology Diagnoses Tachycardia Procedures CONSULT TO CARDIOLOGY OFFICE/OUTPATIENT [facility] 60-74 MINUTES Jay Wilson APRN.FIELD SUPPORT SPECIALIST [address] [facility] [place] [address] Referral ID Status Reason Start Date Expiration Date Visits Requested Visits Authorized [id number] Pending Review PCP Requested Referral 3 06/08/2024 1 1 Additional Source Comments INFORMATION SOURCE (unrecogn ized section and content) DATE CREATED AUTHOR AUTHOR'S ORGANIZ ATION 10/13/2022 [facility] DATE CREATED AUTHOR AUTHOR'S ORGANIZ ATION 06/30/2023 [facility] DATE CREATED AUTHOR AUTHOR'S ORGANIZ ATION 07/09/2023 [facility] nter Source Comments (unrecognize d section and content) In the event this informatio n is protected by the Federal Confidentiality of Alcohol and Drug Abuse Patient Records regulations: The Federal rules restrict any use of the information to criminally investigate or prosecute any alcohol or drug abuse patient.[facility] the event this information is protected by the Federal Confidentiality of Alcohol and Drug Abuse Patient Records regulations: The Federal rules restrict any use of the information to criminally investigate or prosecute any alcohol or drug abuse patient.[facility] the event this information is protected by the Federal Confidentiality of Alcohol and Drug Abuse Patient Records regulations: The Federal rules restrict any use of the information to criminally investigate or prosecute any alcohol or drug abuse patient.[facility] Reason for Visit (unrecogniz ed section and content) Reason Comments New Patient Consult Care Teams (unrecognized sec tion and content) Plate Hanger Relationship Specialty Start Date End Date Chaz Romero (Hist) NO FORWARDING ADDRESS PCP - General 01/16/03 Inocencia Dean MD [address] [address] Referring Internal Medicine 05/31/23 Plate Hanger Relationship Specialty Start Date End Date Chaz Romero (Hist) NO FORWARDING ADDRESS PCP - General 01/16/03 Inocencia Dean MD [address] [address] Referring Internal Medicine 05/31/23 FOR RECORDS PERTAINING [...] BE BASED ON THE PRIMARY CLINICAL RECORDS. [facility] [employer] [facility]. provides no warranty or guarantee of the accuracy or completeness of information in this document.
== END | disposition home or self-care (01) ==
PROVIDERS: PCP Internal Medicine; Referring Provider Internal Medicine Cardiovascular Disease; Visit Provider Internal Medicine Cardiovascular Disease
DX: I10 Essential (primary) hypertension (principal); E66.9 Obesity, unspecified; R55 Syncope and collapse
CPT/HCPCS: 74174; Q9967

== ENCOUNTER → 2023-08-05 | Outpatient (CLI) | payer OTHER, SELFPAY ==
--- NOTE | 2023-08-05 09:24 | US_ITS ---
STUDY: ABDOMINAL ULTRASOUND - RIGHT UPPER QUADRANT REASON FOR VISIT: Female, 33 years old Right upper quadrant, see CAT scan. Hemangioma? TECHNIQUE: Ultrasound evaluation of the right upper quadrant was performed with real-time and static dean-scale imaging. TECHNICAL QUALITY: Adequate. COMPARISON: None. FINDINGS: Liver: The liver is enlarged and measures 20.7 cm. There is increased echogenicity consistent with fatty infiltration. The bile ducts are within normal limits. There is hepatic color flow. The direction of portal flow is hepatopetal. There is a 9 mm x 9 mm x 8 mm septated cyst in the right lobe of the liver. Gallbladder: Normal distended gallbladder. The gallbladder wall measures 2.7 mm. There is a negative sonographic Andrade''s sign. There is no pericholecystic fluid. There are no gallstones. Common Bile Duct (C.B.D.): The common bile duct measures 5.3 mm. Pancreas: Normal size of the head, body and tail of the pancreas. There is normal echogenicity of the pancreas. There is no demonstrated pancreatic mass or cyst. Right Kidney: Normal size of the right kidney. The right kidney measures 10.9 cm x 5.5 cm x 4.9 cm. Normal renal cortex. The right cortex measures 1.3 cm. There is no demonstrated renal mass or cyst. There is no right hydronephrosis. A suspected 1.1 cm right renal calculus in the lower pole. US/Abdomen Limited IMPRESSION: Hepatomegaly and fatty infiltration of the liver. 8 mm x 9 mm x 9 mm septated cyst in the right lobe of the liver. Electronically Signed: Robert Frazier MD at 10:30 EST ,
--- OUTSIDE RECORDS SUMMARY | 2023-08-05 09:43 | XMS RPT_ITS | CCD ---
Author Name Unknown Address [address] [place] [address] Organization [facility] Care Team Providers Care [employer] Account Executive Name Role Phone INOCENCIA DEAN MD Unavailable [...] Translations: [GRAPE SEED OIL] Drug Allergy 06-09-2023 [facility] Medications Completed/Discontinued Medications Medication Drug Class(es) Dates Sig (Normalized) Sig (Original) cholecalciferol 5000 unt / folic acid 1 mg oral tablet (2 sources) Vitamin D vitamin D3-folic acid 125 mcg (5,000 unit)-1 mg tab chorionic gonadotropin 64475 unt/ml injectable solution (2 sources) Gonadotropin Start: [...] 167.6 cm Jay Wilson APRN.CNP Work Phone: [facility] 06-09-2023 09:02-0500 Body weight 109.14 kg Jay Wilson APRN.CNP Work Phone: [facility] 06-09-2023 09:02-0500 Diastolic blood pressure 88 mm[Hg] Jay Wilson APRN.CNP Work Phone: [facility] 06-09-2023 09:02-0500 Heart rate 107 /min Jay Wilson APRN.CNP Work Phone: [facility] 06-09-2023 09:02-0500 SaO2% (BldA) [Mass fraction] 98 % Jay Wilson APRN.CNP Work Phone: [facility] 06-09-2023 09:02-0500 Systolic blood pressure 149 mm[Hg] Jay Wilson APRN.CNP Work Phone: [facility] Encounters Encounter Date Encounter Type Care Provider Facility Start: 06-29-2023 End: 06-30-2023 ambulatory CHAZ C (HIST) BANNERAMIRA Facility:[facility] [place] Start: 06-22-2023 End: 06-22-2023 ambulatory JAY WILSON Facility:[id number] Start: 06-20-2023 End: 06-21-2023 ambulatory [facility]AZ C (H[facility]) [facility] Facility:[facility] [place] Start: 06-11-2023 ambulatory CHAZ C (HIST) [facility] Facility:[facility] Start: 06-09-2023 End: 06-09-2023 Patient encounter procedure Jay Wilson APRN.CNP Work Phone: Neurology Plan of Treatment Date Care Activity Detail Author Start: 06-09-2023 End: 09-08-2023 CATECHOLAMINES FRACTIONATED, URINE FREE CATECHOLAMINES FRACTIONATED, URINE FREE Lab Routine Tachycardia Expected: 06/09/2023, Expires: 09/08/2023 [facility] Work Phone: Immunizations Immunization Date Immunization Notes Care Provider Hetal kate 01-25-2012 hepatitis A vaccine, unspecified formulation Neurology Provider [facility] Work Phone: 06-02-2011 hepatitis A vaccine, unspecified formulation Neurology Provider [facility] 03-05-2009 hepatitis B vaccine, adult dosage Neurology Provider [facility] 03-05-2009 human papilloma viru s vaccine, quadrivalent Neurology Provider [facility] 09-13-2008 hepatitis B vaccine, pediatric or pediatric/adolescent dosage Neurology Provider [facility] 09-13-2008 human papilloma viru s vaccine, quadrivalent Neurology Provider [facility] 07-23-2008 hepatitis B vaccine, pediatric or pediatric/adolescent dosage Neurology [facility] Work Phone: 07-23-2008 human papilloma viru s vaccine, quadrivalent Neurology [facility] Work Phone: 07-23-2008 Meningococcal, MCV4, unspecified conjugate formulation(groups A, C, Y and W-135) Neurology [facility] Work Phone: 12-01-2006 tetanus toxoid, redu belinda diphtheria toxoid, and acellular pertussis vaccine, adsorbed Neurology [facility] Work Phone: 02-11-2003 measles, mumps and rubella virus vaccine Neurology [facility] Work Phone: 02-23-1999 measles, mumps and rubella virus vaccine Neurology [facility] Work Phone: 04-10-1997 chicken pox (disease) Neurology [facility] Work Phone: 01-18-1996 diphtheria, tetanus toxoids and acellular pertussis vaccine Neurology [facility] Work Phone: 01-18-1996 trivalent poliovirus vaccine, live, oral Neurology [facility] Work Phone: 08-06-1992 diphtheria, tetanus toxoids and acellular pertussis vaccine Neurology [facility] Work Phone: 08-06-1992 trivalent poliovirus vaccine, live, oral Neurology [facility] Work Phone: 05-01-1992 haemophilus influenz ae type b vaccine, HbOC conjugate Neurology [facility] Work Phone: 05-01-1992 measles, mumps and rubella virus vaccine Neurology [facility] Work Phone: 1991 DTP-Haemophilus influenzae type b conjugate vaccine Neurology [facility] Work Phone: 1991 trivalent poliovirus vaccine, live, oral Neurology [facility] Work Phone: 1991 DTP-Haemophilus influenzae type b conjugate vaccine Neurology Provider [facility] Work Phone: 1991 trivalent poliovirus vaccine, live, oral Neurology Provider [facility] Work Phone: 1991 DTP-Haemophilus influenzae type b conjugate vaccine Neurology Provider [facility] Work Phone: 1991 trivalent poliovirus vaccine, live, oral Neurology Provider [facility] Work Phone: Payers Date Payer Category Payer Unknown [id number] 2022 Unknown [employer] P[employer] [id number] 2022-Present [phone] [address] [place] [address] PPO [id number] 1991 Unknown [id number] 1991 Unknown [id number] 1991 Unknown [id number] Unknown [id number] Social History Date Type Detail Facility [facility]: [facility] Start: 06-02-2011 Tobacco use and exposure Smoke less tobacco non-user [facility] Start: 02-24-2022 End: 06-09-2023 Alcohol intake Current non-drinker of alcohol (finding) [facility] Start: 01-08-2018 End: 06-09-2023 History of Social function [facility] Start: 01-08-2018 End: 06-09-2023 Tobacco use panel [facility] Start: 1990 Sex Assigned At Female C [facility] Start: 10-07-2022 Gender identity Identifies as female gender (finding) [facility] Start: 10-07-2022 Sexual orientation Heterosexual (elif troncoso) [facility] Adult Depression Screening Assessment 0 [facility] Progress note 07-07-2023 Note Date & Type Note Facility 07-07-2023 Note HNO ID: [id number] Author: Romeo Maldonado MD Service: ? Author Type: Physician Type: Progress Notes Filed: 07/07/2023 12:29 PM Note Text: Summary: Holter Monitor Report NSR/Sinus Tachycardia 71-163 bpm, ave 103 bpm. Rare PAC's, with a 4 beat run of PAT at 175 bpm. Rare PVC's No heart block or Afib. Palpitations and SOB, correlating with NSR and sinus tachycardia [facility] Progress note 06-09-2023 Note Date & Type Note Facility 06-09-2023 Note HNO ID: [id number] Author: Jay Wilson APRN.CNP Service: ? Author Type: Nurse Practitioner Type: Progress Notes Filed: 06/09/2023 1:01 PM Note Text: [facility] New Patient Evaluation [...] Type Note Facility 06-09-2023 Instructions Jay Wilson APRN.[employer]GE INSPECTOR - 06/09/2023 9:57 AM EST nurse monitoring Urine panel Consult to cardiology Send echo and pervious awake overnight monitor Follow up after testing Conservative Measures: Make [...] quickly and transiently. documented in this encounter [facility] History of Present illness Narrative 06-09-2023 Jay Wilson APRN.CNP - 06/09/2023 9:00 AM EST Note Date & Type Note Facility 06-09-2023 History of Presen t illness Narrative Images from the original note were not included. [facility] New Patient Evaluation [...] which included preparing to see the patient, [id number] patient care, completing clinical documentation, obtaining and/or reviewing separately obtained history, performing a medically appropriate examination, counseling and educating the patient/family/caregiver, and ordering medications, tests, or procedures. Jay Wilson APRN.[facility] Neuromuscular Medicine [address] [place]. [address] Appointment: [phone] In regards to blood work, testing, and radiology reports these are released automatically to the patients. We do not comment on most testing on [facility] in a message or commentary unless there [...] problem? : Mild documented in this encounter [facility] Note 05-26-2023 Telephone Encounter - Clare Gomes - 05/26/2023 4:21 PM EST Note Date & Type Note Facility 05-26-2023 Miscellaneous Notes Formattin g of this note might be different from the original. States that referral was faxed on May 17 at 10am, patient has also called yet unable to get a call back or get through to anyone. Notified that Dr. Saavdera sees in 2 different department specialties, and that if fax wasn't sent to our dept specifically, we wouldn't be aware. Gave her phone + fax number for General Neuro triage stating to call + ask for patient to be triaged to schedule with Dr. Saavedra per patient's request with dx. documented in this encounter [facility] Evaluation note Note Date & Type Note Facility documented in this encounter [facility] Evaluation note Note Date & Type Note Facility documented in this encounter [facility] Reason for referral (narrative) Outpatient Procedure (Routine) - Authorized Note Date & Type Note Facility Referral ID Status Reason Start Date Expiration Date Visits Requested Visits Authorized [id number] Authorized Auto-Generat ed Referral 3 06/08/2024 1 1 [facility] Summary Purpose Family History No Family History Records FoundNo Family History Records FoundNo Family History Records FoundNo Family History Records Found Advance Directives No Advanced Directives Records FoundNo Advanced Directives Records FoundNo Advanced Directives Records FoundNo Advanced Directives Records Found Reason for Referral Specialty Diagnoses / Procedures Referred By Federico ribeiro Referred To Contact Cardiology Diagnoses Tachycardia Procedures CONSULT TO CARDIOLOGY OFFICE/OUTPATIENT [facility] 60-74 MINUTES Jay Wilson APRN.[employer] INSPECTOR [address] [facility] [place] [address] Referral ID Status Reason Start Date Expiration Date Visits Requested Visits Authorized [id number] Pending Review PCP Requested Referral 3 06/08/2024 1 1 Additional Source Comments INFORMATION SOURCE (unrecogn ized section and content) DATE CREATED AUTHOR AUTHOR'S ORGANIZ ATION 10/13/2022 [facility] DATE CREATED AUTHOR AUTHOR'S ORGANIZ ATION 06/30/2023 [facility] DATE CREATED AUTHOR AUTHOR'S ORGANIZ ATION 07/09/2023 [facility] nter Source Comments (unrecognize d section and content) In the event this informatio n is protected by the Federal Confidentiality of Alcohol and Drug Abuse Patient Records regulations: The Federal rules restrict any use of the information to criminally investigate or prosecute any alcohol or drug abuse patient.[facility] the event this information is protected by the Federal Confidentiality of Alcohol and Drug Abuse Patient Records regulations: The Federal rules restrict any use of the information to criminally investigate or prosecute any alcohol or drug abuse patient.[facility] the event this information is protected by the Federal Confidentiality of Alcohol and Drug Abuse Patient Records regulations: The Federal rules restrict any use of the information to criminally investigate or prosecute any alcohol or drug abuse patient.[facility] Reason for Visit (unrecogniz ed section and content) Reason Comments New Patient Consult Care Teams (unrecognized sec tion and content) [employer] Account Executive Relationship Specialty Start Date End Date Chaz Romero (Hist) NO FORWARDING ADDRESS PCP - General 01/16/03 Inocencia Dean MD [address] [address] Referring Internal Medicine 05/31/23 [employer] Account Executive Relationship Specialty Start Date End Date Chaz Romero (Hist) [place] FORWARDING ADDRESS PCP - General 01/16/03 Inocencia Dean MD [address] [id number] Referring Internal Medicine 05/31/23 FOR RECORDS PERTAINING [...] BE BASED ON THE PRIMARY CLINICAL RECORDS. [facility] [employer] [facility]. provides no warranty or guarantee of the accuracy or completeness of information in this document.
== END | disposition home or self-care (01) ==
PROVIDERS: PCP Internal Medicine; Referring Provider Internal Medicine; Visit Provider Internal Medicine
DX: R93.5 Abnormal findings on diagnostic imaging of other abdominal regions, including retroperitoneum (principal)
CPT/HCPCS: 76705

== ENCOUNTER → 2023-08-15 | Outpatient (CLI) | payer OTHER, SELFPAY ==
--- OUTSIDE RECORDS SUMMARY | 2023-08-15 20:26 | XMS RPT_ITS | CCD ---
Author Name Unknown Address [address] [place] [address] Organization [facility] Care Team Providers Care Computer Numerical Control Operator Name Role Phone INOCENCIA DEAN MD Unavailable Unavailable INOCENCIA DEAN MD Unavailable Unavailable INOCENCIA DEAN MD Unavailable Unavailable WYBRANNON ROJOY K Admitting Unavailable WYNESKI ALANA K Primary Care Unavailable WYNESKI ALANA K Consulting Unavailable WYBRANNON ROJOY K Attending Unavailable PROVIDER, UNKNOWN Consulting Unavailable WYALANA ROJO K Attending Unavailable WYABBYKI ALANA K Admitting Unavailable WYNESKI, ALANA K [...] Translations: [GRAPE SEED OIL] Drug Allergy 06-09-2023 [facility] Medications Completed/Discontinued Medications Medication Drug Class(es) Dates Sig (Normalized) Sig (Original) cholecalciferol 5000 unt / folic acid 1 mg oral tablet (2 sources) Vitamin D vitamin D3-folic acid 125 mcg (5,000 unit)-1 mg tab chorionic gonadotropin 38063 unt/ml injectable solution (2 sources) Gonadotropin Start: [...] 167.6 cm Jay Wilson APRN.CNP Work Phone: [facility] 06-09-2023 09:02-0500 Body weight 109.14 kg Jay Wilson APRN.CNP Work Phone: [facility] 06-09-2023 09:02-0500 Diastolic blood pressure 88 mm[Hg] Jay Wilson APRN.CNP Work Phone: [facility] 06-09-2023 09:02-0500 Heart rate 107 /min Jay Wilson APRN.CNP Work Phone: [facility] 06-09-2023 09:02-0500 SaO2% (BldA) [Mass fraction] 98 % Jay Wilson APRN.CNP Work Phone: [facility] 06-09-2023 09:02-0500 Systolic blood pressure 149 mm[Hg] Jay Wilson APRN.CNP Work Phone: [facility] Encounters Encounter Date Encounter Type Care Provider Facility Start: 06-29-2023 End: 06-30-2023 [facility] Start: 06-22-2023 End: 06-22-2023 ambulatory JAY WILSON Facility:[id number] Start: 06-20-2023 End: 06-21-2023 ambulatory CHAZ C (HIST) [facility] Facility:[facility] Start: 06-11-2023 ambulatory CHAZ C (HIST) [facility] Facility:[facility] Start: 06-09-2023 End: 06-09-2023 Patient encounter procedure Jay Wilson APRN.CNP Work Phone: Neurology Plan of Treatment Date Care Activity Detail Author Start: 06-09-2023 End: 09-08-2023 CATECHOLAMINES FRACTIONATED, URINE FREE CATECHOLAMINES FRACTIONATED, URINE FREE Lab Routine Tachycardia Expected: 06/09/2023, Expires: 09/08/2023 [facility] Work Phone: Immunizations Immunization Date Immunization Notes Care Provider Hetal kate 01-25-2012 hepatitis A vaccine, unspecified formulation Neurology Provider [facility] Work Phone: 06-02-2011 hepatitis A vaccine, unspecified formulation Neurology Provider [facility] 03-05-2009 hepatitis B vaccine, adult dosage Neurology Provider [facility] 03-05-2009 human papilloma viru s vaccine, quadrivalent Neurology Provider [facility] 09-13-2008 hepatitis B vaccine, pediatric or pediatric/adolescent dosage Neurology Provider [facility] 09-13-2008 human papilloma viru s vaccine, quadrivalent Neurology Provider [facility] 07-23-2008 hepatitis B vaccine, pediatric or pediatric/adolescent dosage Neurology [facility] Work Phone: 07-23-2008 human papilloma viru s vaccine, quadrivalent Neurology [facility] Work Phone: 07-23-2008 Meningococcal, MCV4, unspecified conjugate formulation(groups A, C, Y and W-135) Neurology [facility] Work Phone: 12-01-2006 tetanus toxoid, redu belinda diphtheria toxoid, and acellular pertussis vaccine, adsorbed Neurology [facility] Work Phone: 02-11-2003 measles, mumps and rubella virus vaccine Neurology [facility] Work Phone: 02-23-1999 measles, mumps and rubella virus vaccine Neurology [facility] Work Phone: 04-10-1997 chicken pox (disease) Neurology [facility] Work Phone: 01-18-1996 diphtheria, tetanus toxoids and acellular pertussis vaccine Neurology [facility] Work Phone: 01-18-1996 trivalent poliovirus vaccine, live, oral Neurology [facility] Work Phone: 08-06-1992 diphtheria, tetanus toxoids and acellular pertussis vaccine Neurology [facility] Work Phone: 08-06-1992 trivalent poliovirus vaccine, live, oral Neurology [facility] Work Phone: 05-01-1992 haemophilus influenz ae type b vaccine, HbOC conjugate Neurology [facility] Work Phone: 05-01-1992 measles, mumps and rubella virus vaccine Neurology [facility] Work Phone: 1991 DTP-Haemophilus influenzae type b conjugate vaccine Neurology [facility] Work Phone: 1991 trivalent poliovirus vaccine, live, oral Neurology [facility] Work Phone: 1991 DTP-Haemophilus influenzae type b conjugate vaccine Neurology Provider [facility] Work Phone: 1991 trivalent poliovirus vaccine, live, oral Neurology Provider [facility] Work Phone: 1991 DTP-Haemophilus influenzae type b conjugate vaccine Neurology Provider [facility] Work Phone: 1991 trivalent poliovirus vaccine, live, oral Neurology Provider [facility] Work Phone: Payers Date Payer Category Payer Unknown [id number] 2022 Unknown [employer] [id number] 2022-Present [phone] [address] [place] [address] PPO [id number] 1991 Unknown [id number] 1991 Unknown [id number] 1991 Unknown [id number] Unknown [id number] Social History Date Type Detail Facility [facility]: [facility] Start: 06-02-2011 Tobacco use and exposure Smoke less tobacco non-user [facility] Start: 02-24-2022 End: 06-09-2023 Alcohol intake Current non-drinker of alcohol (finding) [facility] Start: 01-08-2018 End: 06-09-2023 History of Social function [facility] Start: 01-08-2018 End: 06-09-2023 Tobacco use panel [facility] Start: 1991 Sex Assigned At Female [facility] Start: 10-07-2022 Gender identity Identifies as female gender (finding) [facility] Start: 10-07-2022 Sexual orientation Heterosexual (elif troncoso) [facility] Adult Depression Screening Assessment 0 [facility] Progress note 07-07-2023 Note Date & Type Note Facility 07-07-2023 Note HNO ID: [id number] Author: Romeo Maldonado MD Service: ? Author Type: Physician Type: Progress Notes Filed: 07/07/2023 12:29 PM Note Text: Summary: Holter Monitor Report NSR/Sinus Tachycardia 71-163 bpm, ave 103 bpm. Rare PAC's, with a 4 beat run of PAT at 175 bpm. Rare PVC's No heart block or Afib. Palpitations and SOB, correlating with NSR and sinus tachycardia [facility] [place] [facility] Progress note 06-09-2023 Note Date & Type Note Facility 06-09-2023 Note HNO ID: [id number] Author: Jay Wilson APRN.CNP Service: ? Author Type: Nurse Practitioner Type: Progress Notes Filed: 06/09/2023 1:01 PM Note Text: [facility] New Patient Evaluation CHIEF [...] Type Note Facility 06-09-2023 Instructions Jay Wilson APRN.WINDOW COVERING SALES CONSULTANT - 06/09/2023 9:57 AM EST child monitor Urine panel Consult to cardiology Send echo and pervious cardiac nurse specialist Follow up after testing Conservative Measures: Make [...] quickly and transiently. documented in this encounter [facility] History of Present illness Narrative 06-09-2023 Jay Wilson APRN.CNP - 06/09/2023 9:00 AM EST Note Date & Type Note Facility 06-09-2023 History of Presen t illness Narrative Images from the original note were not included. [facility] New Patient Evaluation CHIEF [...] which included preparing to see the patient, [id number] patient care, completing clinical documentation, obtaining and/or reviewing separately obtained history, performing a medically appropriate examination, counseling and educating the patient/family/caregiver, and ordering medications, tests, or procedures. Jay Wilson APRN.[facility] Neuromuscular [facility] [address] [place]. [address] Appointment: [phone] In regards to blood work, testing, and radiology reports these are released automatically to the patients. We do not comment on most testing on [employer] in a message or commentary unless there [...] problem? : Mild documented in this encounter [facility] Note 05-26-2023 Telephone Encounter - Clare [...] request with dx. documented in this encounter [facility] Evaluation note Note Date & Type Note Facility documented in this encounter [facility] Evaluation note Note Date & Type Note Facility documented in this encounter [facility] Reason for referral (narrative) Outpatient Procedure (Routine) - Authorized Note Date & Type Note Facility Referral ID Status Reason Start Date Expiration Date Visits Requested Visits Authorized [id number] Authorized Auto-Generat ed Referral 3 06/08/2024 1 1 [facility] Summary Purpose Family History No Family History Records FoundNo Family History Records FoundNo Family History Records FoundNo Family History Records Found Advance Directives No Advanced Directives Records FoundNo Advanced Directives Records FoundNo Advanced Directives Records FoundNo Advanced Directives Records Found Reason for Referral Specialty Diagnoses / Procedures Referred By Federico ribeiro Referred To Contact Cardiology Diagnoses Tachycardia Procedures CONSULT TO CARDIOLOGY OFFICE/OUTPATIENT [facility] 60-74 MINUTES Jay Wilson APRN.WINDOW COVERING SALES CONSULTANT [address] [facility] [place] [address] Referral ID Status Reason Start Date Expiration Date Visits Requested Visits Authorized [id number] Pending Review PCP Requested Referral 3 06/08/2024 1 1 Additional Source Comments INFORMATION SOURCE (unrecogn ized section and content) DATE CREATED AUTHOR AUTHOR'S ORGANIZ ATION 10/13/2022 [facility] DATE CREATED AUTHOR AUTHOR'S ORGANIZ ATION 06/30/2023 [facility] DATE CREATED AUTHOR AUTHOR'S ORGANIZ ATION 07/09/2023 [facility] nter Source Comments (unrecognize d section and content) In the event this informatio n is protected by the Federal Confidentiality of Alcohol and Drug Abuse Patient Records regulations: The Federal rules restrict any use of the information to criminally investigate or prosecute any alcohol or drug abuse patient.[facility] the event this information is protected by the Federal Confidentiality of Alcohol and Drug Abuse Patient Records regulations: The Federal rules restrict any use of the information to criminally investigate or prosecute any alcohol or drug abuse patient.[facility] the event this information is protected by the Federal Confidentiality of Alcohol and Drug Abuse Patient Records regulations: The Federal rules restrict any use of the information to criminally investigate or prosecute any alcohol or drug abuse patient.[facility] Reason for Visit (unrecogniz ed section and content) Reason Comments New Patient Consult Care Teams (unrecognized sec tion and content) Computer Numerical Control Operator Relationship Specialty Start Date End Date Chaz Romero (Hist) NO FORWARDING ADDRESS PCP - General 01/16/03 Inocencia Dean MD [address] [address] Referring Internal Medicine 05/31/23 Computer Numerical Control Operator Relationship Specialty Start Date End Date Chaz Romero (Hist) [place] FORWARDING ADDRESS PCP - General 01/16/03 Inocencia Dean MD [address] [id number] Referring Internal Medicine 05/31/23 FOR RECORDS PERTAINING [...] BE BASED ON THE PRIMARY CLINICAL RECORDS. [facility] [employer] [facility]. provides no warranty or guarantee of the accuracy or completeness of information in this document.
== END | disposition home or self-care (01) ==
LOC: SL 20:18
PROVIDERS: PCP Internal Medicine; Visit Provider Internal Medicine
DX: G47.30 Sleep apnea, unspecified (principal)
CPT/HCPCS: 95810

== ENCOUNTER 2023-08-29 09:08 | Outpatient (RCR) | payer OTHER, SELFPAY ==
[2023-08-29 10:01] LABS: Free T3 2.6 pg/mL (2.18-3.98); T4 Free Direct 1.18 ng/dL (0.76-1.46); Thyroid Stim Hormone (TSH) 0.87 uIU/mL (0.358-3.74)
[2023-08-30 16:09] LABS: Thyroglobulin Antibody < 1.0 IU/mL (0.0-0.9); Thyroid Peroxidase AB 305 IU/mL (0-34)
== END 2023-09-08 18:00 | disposition home or self-care (01) ==
LOC: LAB 09:08
PROVIDERS: PCP Internal Medicine
DX: N92.6 Irregular menstruation, unspecified (principal); E03.9 Hypothyroidism, unspecified
CPT/HCPCS: 36415; 84439; 84443; 84481; 86376; 86800

== ENCOUNTER → 2023-09-06 | Outpatient (CLI) | payer OTHER, SELFPAY ==
--- NOTE | 2023-09-06 16:50 | RAD_ITS ---
INDICATION: KUB- KIDNEY STONE EXAMINATION/TECHNIQUE: X-RAY - XR Abdomen 1 View COMPARISON: CT July 26, 2023 FINDINGS: BOWEL GAS PATTERN: Nonspecific non-obstructive bowel gas pattern. No focal stomach or bowel distention. FREE AIR: No supine evidence of free air. ORGANOMEGALY: Hepatomegaly. CALCIFICATIONS: Right renal lower pole stone is suggested though difficult to appreciate with overlying stool. No gross left nephrolithiasis. No suspicious calcification along the ureteral tracts. LOWER CHEST: No acute pathology. BONES AND SOFT TISSUES: No acute pathology. RAD/Abdomen Single View IMPRESSION: Persistent right renal lower pole nephrolithiasis is suggested but difficult to distinguish from overlying bowel. No other visible nephrolithiasis. Hepatomegaly. Electronically Signed: Julian Friedman MD at 22:16 EST ,
--- OUTSIDE RECORDS SUMMARY | 2023-09-07 00:28 | XMS RPT_ITS | CCD ---
Author Name Unknown Address [address] [place] [address] Organization [facility] Care Team Providers Care Spring Repairer Helper Hand Name Role Phone INOCENCIA DEAN MD Unavailable [...] Translations: [GRAPE SEED OIL] Drug Allergy 06-09-2023 [facility] Medications Completed/Discontinued Medications Medication Drug Class(es) Dates Sig (Normalized) Sig (Original) cholecalciferol 5000 unt / folic acid 1 mg oral tablet (2 sources) Vitamin D vitamin D3-folic acid 125 mcg (5,000 unit)-1 mg tab chorionic gonadotropin 26487 unt/ml injectable solution (2 sources) Gonadotropin Start: [...] 167.6 cm Jay Wilson APRN.CNP Work Phone: [facility] 06-09-2023 09:02-0500 Body weight 109.14 kg Jay Wilson APRN.CNP Work Phone: [facility] 06-09-2023 09:02-0500 Diastolic blood pressure 88 mm[Hg] Jay Wlison APRN.CNP Work Phone: [facility] 06-09-2023 09:02-0500 Heart rate 107 /min Jay Wilson APRN.CNP Work Phone: [facility] 06-09-2023 09:02-0500 SaO2% (BldA) [Mass fraction] 98 % Jay Wilson APRN.CNP Work Phone: [facility] 06-09-2023 09:02-0500 Systolic blood pressure 149 mm[Hg] Jay Wilson APRN.CNP Work Phone: [facility] Encounters Encounter Date Encounter Type Care Provider Facility Start: 06-29-2023 End: 06-30-2023 [facility] Start: 06-22-2023 End: 06-22-2023 ambulatory JAY WILSON Facility:[id number] Start: 06-20-2023 End: 06-21-2023 ambulatory CHAZ C (HIST) [facility] Facility:[facility] Start: 06-11-2023 ambulatory CHAZ C (HIST) [facility] Facility:[facility] Start: 06-09-2023 End: 06-09-2023 Patient encounter procedure Jay Wilson APRN.CNP Work Phone: Neurology Plan of Treatment Date Care Activity Detail Author Start: 06-09-2023 End: 09-08-2023 CATECHOLAMINES FRACTIONATED, URINE FREE CATECHOLAMINES FRACTIONATED, URINE FREE Lab Routine Tachycardia Expected: 06/09/2023, Expires: 09/08/2023 [facility] Work Phone: Immunizations Immunization Date Immunization Notes Care Provider Hetal kate 01-25-2012 hepatitis A vaccine, unspecified formulation Neurology Provider [facility] Work Phone: 06-02-2011 hepatitis A vaccine, unspecified formulation Neurology Provider [facility] 03-05-2009 hepatitis B vaccine, adult dosage Neurology Provider [facility] 03-05-2009 human papilloma viru s vaccine, quadrivalent Neurology Provider [facility] 09-13-2008 hepatitis B vaccine, pediatric or pediatric/adolescent dosage Neurology Provider [facility] 09-13-2008 human papilloma viru s vaccine, quadrivalent Neurology Provider [facility] 07-23-2008 hepatitis B vaccine, pediatric or pediatric/adolescent dosage Neurology [facility] Work Phone: 07-23-2008 human papilloma viru s vaccine, quadrivalent Neurology [facility] Work Phone: 07-23-2008 Meningococcal, MCV4, unspecified conjugate formulation(groups A, C, Y and W-135) Neurology [facility] Work Phone: 12-01-2006 tetanus toxoid, redu belinda diphtheria toxoid, and acellular pertussis vaccine, adsorbed [facility] Work Phone: 02-11-2003 measles, mumps and rubella virus vaccine [facility] Work Phone: 02-23-1999 measles, mumps and rubella virus vaccine [facility] Work Phone: 04-10-1997 chicken pox (disease) Neurology [facility] Work Phone: 01-18-1996 diphtheria, tetanus toxoids and acellular pertussis vaccine Neurology [facility] Work Phone: 01-18-1996 trivalent poliovirus vaccine, live, oral [facility] Work Phone: 08-06-1992 diphtheria, tetanus toxoids and acellular pertussis vaccine [facility] Work Phone: 08-06-1992 trivalent poliovirus vaccine, live, oral [facility] Work Phone: 05-01-1992 haemophilus influenz ae type b vaccine, HbOC conjugate [facility] Work Phone: 05-01-1992 measles, mumps and rubella virus vaccine [facility] Work Phone: 1991 DTP-Haemophilus influenzae type b conjugate vaccine Neurology [facility] Work Phone: 1991 trivalent poliovirus vaccine, live, oral [facility]rology [facility] Work Phone: 1991 DTP-Haemophilus influenzae type b conjugate vaccine Neurology Provider [facility] Work Phone: 1991 trivalent poliovirus vaccine, live, oral Neurology Provider [facility] Work Phone: 1991 DTP-Haemophilus influenzae type b conjugate vaccine Neurology Provider [facility] Work Phone: 1991 trivalent poliovirus vaccine, live, oral Neurology Provider [facility] Work Phone: Payers Date Payer Category Payer Unknown [id number] 2022 Unknown [employer] [id number] 2022-Present [phone] [address] [place] [address] PPO [id number] 1991 Unknown [id number] 1991 Unknown [id number] 1991 Unknown [id number] Unknown [id number] Social History Date Type Detail Facility Start: [facility]-02-[facility] Start: 06-02-2011 Tobacco use and exposure Smoke less tobacco non-user [facility] Start: 02-24-2022 End: 06-09-2023 Alcohol intake Current non-drinker of alcohol (finding) [facility] Start: 01-08-2018 End: 06-09-2023 History of Social function [facility] Start: 01-08-2018 End: 06-09-2023 Tobacco use panel [facility] Start: 1990 Sex Assigned At Female [facility] Start: 10-07-2022 Gender identity Identifies as female gender (finding) [facility] Start: 10-07-2022 Sexual orientation Heterosexual (elif troncoso) [facility] Adult Depression Screening Assessment 0 [facility] Progress note 07-07-2023 Note Date & Type Note Facility 07-07-2023 Note HNO ID: [id number] Author: Romeo Maldonado MD Service: ? Author Type: Physician Type: Progress Notes Filed: 07/07/2023 12:29 PM Note Text: Summary: Holter Monitor Report NSR/Sinus Tachycardia 71-163 bpm, ave 103 bpm. Rare PAC's, with a 4 beat run of PAT at 175 bpm. Rare PVC's No heart block or Afib. Palpitations and SOB, correlating with NSR and sinus tachycardia [facility] Progress note 06-09-2023 Note Date & Type Note Facility 06-09-2023 Note HNO ID: [id number] Author: Jay Wilson APRN.CNP Service: ? Author Type: Nurse Practitioner Type: Progress Notes Filed: 06/09/2023 1:01 PM Note Text: [facility] New Patient Evaluation [...] Type Note Facility 06-09-2023 Instructions Jay Wilson APRN.JOB PLACEMENT COUNSELOR - 06/09/2023 9:57 AM EST media monitor Urine panel Consult to cardiology Send echo and pervious site monitor Follow up after testing Conservative Measures: [...] quickly and transiently. documented in this encounter [facility] History of Present illness Narrative 06-09-2023 Jay Wilson APRN.CNP - 06/09/2023 9:00 AM EST Note Date & Type Note Facility 06-09-2023 History of Presen t illness Narrative Images from the original note were not included. [facility] New Patient Evaluation [...] which included preparing to see the patient, [id number] patient care, completing clinical documentation, obtaining and/or reviewing separately obtained history, performing a medically appropriate examination, counseling and educating the patient/family/caregiver, and ordering medications, tests, or procedures. Jay Wilson APRN.[facility] [address] [place]. [address] Appointment: [phone] In regards to blood work, testing, and radiology reports these are released automatically to the patients. We do not comment on most testing on [employer] in a message or commentary unless there [...] problem? : Mild documented in this encounter [facility] Note 05-26-2023 Telephone Encounter - Clare [...] request with dx. documented in this encounter [facility] Evaluation note Note Date & Type Note Facility documented in this encounter [facility] Evaluation note Note Date & Type Note Facility documented in this encounter [facility] Reason for referral (narrative) Outpatient Procedure (Routine) - Authorized Note Date & Type Note Facility Referral ID Status Reason Start Date Expiration Date Visits Requested Visits Authorized [id number] Authorized Auto-Generat ed Referral 3 06/08/2024 1 1 [facility] Summary Purpose Family History No Family History Records FoundNo Family History Records FoundNo Family History Records FoundNo Family History Records Found Advance Directives No Advanced Directives Records FoundNo Advanced Directives Records FoundNo Advanced Directives Records FoundNo Advanced Directives Records Found Reason for Referral Specialty Diagnoses / Procedures Referred By Federico ribeiro Referred To Contact Cardiology Diagnoses Tachycardia Procedures CONSULT TO CARDIOLOGY OFFICE/OUTPATIENT [facility] 60-74 MINUTES Jay Wilson APRN.JOB PLACEMENT COUNSELOR [address] [facility] [place] [address] Referral ID Status Reason Start Date Expiration Date Visits Requested Visits Authorized [id number] Pending Review PCP Requested Referral 3 06/08/2024 1 1 Additional Source Comments INFORMATION SOURCE (unrecogn ized section and content) DATE CREATED AUTHOR AUTHOR'S ORGANIZ ATION 10/13/2022 [facility] DATE CREATED AUTHOR AUTHOR'S ORGANIZ ATION 06/30/2023 [facility] DATE CREATED AUTHOR AUTHOR'S ORGANIZ ATION 07/09/2023 [facility] nter Source Comments (unrecognize d section and content) In the event this informatio n is protected by the Federal Confidentiality of Alcohol and Drug Abuse Patient Records regulations: The Federal rules restrict any use of the information to criminally investigate or prosecute any alcohol or drug abuse patient.[facility] the event this information is protected by the Federal Confidentiality of Alcohol and Drug Abuse Patient Records regulations: The Federal rules restrict any use of the information to criminally investigate or prosecute any alcohol or drug abuse patient.[facility] the event this information is protected by the Federal Confidentiality of Alcohol and Drug Abuse Patient Records regulations: The Federal rules restrict any use of the information to criminally investigate or prosecute any alcohol or drug abuse patient.[facility] Reason for Visit (unrecogniz ed section and content) Reason Comments New Patient Consult Care Teams (unrecognized sec tion and content) Spring Repairer Helper Hand Relationship Specialty Start Date End Date Chaz Romero (Hist) NO FORWARDING ADDRESS PCP - General 01/16/03 Inocencia Dean MD [address] [address] Referring Internal Medicine 05/31/23 Spring Repairer Helper Hand Relationship Specialty Start Date End Date Chaz Romero (Hist) NO FORWARDING ADDRESS PCP - General 01/16/03 Inocencia Dean MD [address] [id number] Referring Internal Medicine 05/31/23 FOR RECORDS PERTAINING [...] BE BASED ON THE PRIMARY CLINICAL RECORDS. [facility] [employer] [facility]. provides no warranty or guarantee of the accuracy or completeness of information in this document.
== END | disposition home or self-care (01) ==
PROVIDERS: PCP Internal Medicine; Referring Provider Urology; Visit Provider Urology
DX: N20.0 Calculus of kidney (principal)
CPT/HCPCS: 74018

== ENCOUNTER 2023-10-03 09:17 | Outpatient (RCR) | payer OTHER, SELFPAY ==
[2023-10-03 11:30] LABS: PTHIN 34.7 pg/mL (18.4-80.1)
[2023-10-03 11:33] LABS: (24 HR) Urine Calcium 428.8 mg/24 HR (42.0-353.0); 24HR UR TOTAL VOLUME 3200 ml; 24HR. UA Prot. Total Volume 3200 mL; 24Hr.Lytes Total Volume 3200 mL; Calcium Urine pH Range 1; Creat.Clear Total Volume 3200 mL; Creatinine Urine 46.4 mg/dL (NO RANGE EST.); Urine Calcium (Random) 13.4 (Not Estab.); Urine Protein (24 Hour) 6.5 mg/dL (<11.9)
[2023-10-03 11:34] LABS: Sodium 24 HR UR 221 mmol/24h (40-220); Urine Sodium 69 mmol/L (Not Establ.)
[2023-10-03 11:43] LABS: Urine Chloride 123 mmol/L (Not Establ.); Urine Sodium 50 mmol/L (Not Establ.)
[2023-10-03 11:51] LABS: Creatinine Clearance 147 ml/min (100-200); Creatinine Serum Creat 0.7 mg/dL (0.6-1.0); EST Glomerular Filtration Rate 103 mL/min (>60); Est Glom Filt Rate - Afr Amer 103 mL/min (>60)
[2023-10-03 12:05] LABS: Albumin, Serum 3.9 g/dL (3.2-5.0); BUN 14 mg/dL (7-18); BUN/Creat Ratio 19.2 RATIO (10-20); Calcium,Total 9.3 mg/dL (8.5-10.1); Chloride 105 mmol/L (98-107); Creatinine, Serum 0.73 mg/dL (0.55-1.02); EST Glomerular Filtration Rate 98 mL/min (>60); Est Glom Filt Rate - Afr Amer 119 mL/min (>60); Free T3 2.3 pg/mL (2.18-3.98); Glucose 88 mg/dL (74-106); Phosphorus 2.7 mg/dL (2.5-4.9); Potassium 3.9 mmol/L (3.5-5.1); Sodium Level 141 mmol/L (136-145); T4 Free Direct 0.98 ng/dL (0.76-1.46); Thyroid Stim Hormone (TSH) 1.26 uIU/mL (0.358-3.74); Uric Acid 5.3 mg/dL (2.6-6.0)
[2023-10-04 05:07] LABS: Uric Acid, 24Ur 534.4 mg/24 hr (173.7-902.1); Uric Acid, Ur 16.7 mg/dL (Not Estab.)
[2023-10-04 16:10] LABS: Thyroglobulin Antibody < 1.0 IU/mL (0.0-0.9); Thyroid Peroxidase AB 244 IU/mL (0-34)
== END 2023-10-08 18:00 | disposition home or self-care (01) ==
LOC: LAB 09:17
PROVIDERS: PCP Internal Medicine
DX: N92.6 Irregular menstruation, unspecified (principal); E03.9 Hypothyroidism, unspecified; N20.0 Calculus of kidney
CPT/HCPCS: 36415; 80069; 81050; 82340; 82436; 82570; 82575; 83970; 84133; 84156; 84300; 84439; 84443; 84481; 84550; 84560; 86376; 86800

== ENCOUNTER → 2023-10-04 | Outpatient (CLI) | payer OTHER, SELFPAY ==
[2023-10-04 12:35] LABS: 24HR. Urine Creatinine 1.62 g/24 HR (0.70-1.90)
[2023-10-11 15:08] LABS: Citric Acid, 24Ur 456 mg/24 hr (320-1240); Citric Acid, Ur 169 mg/L (Undefined)
== END | disposition home or self-care (01) ==
LOC: LAB 10:36 → LABSPEC 10:37
PROVIDERS: PCP Internal Medicine
DX: N20.0 Calculus of kidney (principal)
CPT/HCPCS: 81050; 82507; 82570

== ENCOUNTER → 2023-10-06 | Outpatient (CLI) | payer OTHER, SELFPAY ==
[2023-10-06 10:07] LABS: Absolute Lymphocyte Count 1.87 X10^3/uL (0.83-4.51); Absolute Neutrophil Count 5.6 X10^3/uL (2.0-7.7); Basophil# 0.09 X10^3/uL; Basophil% 1.1 % (0-1); Eosinophil# 0.28 X10^3/uL; Eosinophils% 3.4 % (0-5); Lymphocyte # 1.87 X10^3/ul (0.83-4.51); Lymphocyte % 22.4 % (19-41); Mean Corp Hgb Conc 33.3 g/dL (32-36); Mean Corpuscular Hgb 30.1 pg (27.0-32.0); Mean Corpuscular Volume 90.3 fL (81-99); Mean Platelet Vol. 9.8 fl (6.2-12.0); Monocyte# 0.47 X10^3/uL; Monocyte% 5.6 % (0-10); NRBC Flagged by Analyzer 0 % (0-5); Neutrophil % 67.1 % (47-70); Platelet Count 370 K/mm3 (150-450); RBC Distribution Width CV 12.7 % (11.6-14.6); RBC Distribution Width SD 41.6 fl (35.1-43.9); Red Blood Count 4.65 M/mm3 (4.2-5.4); White Blood Count 8.3 K/mm3 (4.4-11.0)
[2023-10-06 10:33] LABS: Vitamin D,25 Hydroxy 77.4 ng/mL
[2023-10-06 10:37] LABS: Hemoglobin A1c 5.4 % (3.8-5.6)
[2023-10-06 10:42] LABS: AST(SGOT) 14 U/L (15-37); Alanine Aminotransfer ALT/SGPT 33 U/L (13-56); Albumin, Serum 3.9 g/dL (3.2-5.0); Alkaline Phosphatase 93 U/L (45-117); Anion Gap 4 (5-15); BUN 10 mg/dL (7-18); Calcium,Total 9.3 mg/dL (8.5-10.1); Chloride 107 mmol/L (98-107); Cholesterol 250 mg/dL (200); Creatinine, Serum 0.83 mg/dL (0.55-1.02); EST Glomerular Filtration Rate 84 mL/min (>60); Est Glom Filt Rate - Afr Amer 102 mL/min (>60); Free T3 2.4 pg/mL (2.18-3.98); Glucose 102 mg/dL (74-106); High Density Lipoprotein 53 mg/dL; Magnesium 2.3 mg/dL (1.6-2.6); Potassium 3.9 mmol/L (3.5-5.1); Protein, Total 7.9 g/dL (6.4-8.2); Sodium Level 138 mmol/L (136-145); T4 Free Direct 1.09 ng/dL (0.76-1.46); Thyroid Stim Hormone (TSH) 1.19 uIU/mL (0.358-3.74); Triglycerides 80 mg/dL; Very Low Density Lipoprotein 16 mg/dL (5-40)
== END | disposition home or self-care (01) ==
LOC: LAB 09:26
PROVIDERS: PCP Internal Medicine; Referring Provider Internal Medicine; Visit Provider Internal Medicine
DX: E55.9 Vitamin D deficiency, unspecified (principal); I10 Essential (primary) hypertension; E06.3 Autoimmune thyroiditis; E88.810 Metabolic syndrome; R73.9 Hyperglycemia, unspecified
CPT/HCPCS: 36415; 80053; 80061; 82306; 83036; 83735; 84439; 84443; 84481; 85025

== ENCOUNTER 2023-11-25 08:06 | Outpatient (RCR) | payer OTHER, SELFPAY ==
[2023-11-25 09:46] LABS: Estradiol 137.3 pg/mL; Free T3 2.3 pg/mL (2.18-3.98); T4 Free Direct 1.06 ng/dL (0.76-1.46); Thyroid Stim Hormone (TSH) 1.23 uIU/mL (0.358-3.74)
[2023-11-26 03:07] LABS: PROGESTERONE 20.6 ng/mL (.)
[2023-11-29 18:07] LABS: Anti-Thyroglobulin AB < 1.0 IU/mL (0.0-0.9); Thyroglobulin, Serum Qt. 9.4 ng/mL (1.5-38.5); Thyroid Peroxidase AB 217 IU/mL (0-34)
== END 2023-11-25 18:00 | disposition home or self-care (01) ==
LOC: LAB 08:06
PROVIDERS: PCP Internal Medicine
DX: N92.6 Irregular menstruation, unspecified (principal)
CPT/HCPCS: 36415; 82670; 84144; 84432; 84439; 84443; 84481; 86376; 86800